=== PATIENT | female | born 2000 | race Caucasian/White ===

== ENCOUNTER 2023-11-03 13:02 | Outpatient (AMB) | payer OTHER, SELFPAY ==
--- NOTE | 2023-11-03 13:07 | MHC.PC.OV ---
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 She has a hx of ALL, anxiety, depression and GERD. She made a list of concerns today. She moved to [place] 2 years ago. She is currently living with her fiance. She injured her left pinky 8 weeks ago with a kitchen knife. She says that she has full range of motion but sometimes when she hits her pinky she is worried that she hit the bone with the knife. She states her tetanus was within the last 5 years. She has sensation to her pinky. She wants an x-ray. Psych: She has been having a lot of anxiety and depression recently. She states she is living with her fiance, parents are . She says that she has a history of this but recently the anxiety and depression has been a bit more overwhelming. She thinks that she is easily annoyed and does not like this. She feels that she is putting a lot of stress on her boyfriend. She is currently unemployed and she realizes that this is also contributing to her symptoms. In the past she thinks she tried Zoloft without improvement. Heme/onc: dx in 2006 and [facility] [place] [facility] She was successfully treated with chemo. She states she was discharged from heme/onc about 10 years ago. 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 PFSH Social History Housing: Apartment Patient Tobacco Use Status: Never used Tobacco e-Cigarette/Vaping Use: Never Used Second Hand Smoke Exposure: No service: No Current occupational status: unemployed Cognitive needs: No Hearing needs: No Vision needs: No Questionnaire PHQ-9 Over the last 2 weeks, how often have you been bothered by any of the following problems? 1. Little interest or pleasure in doing things: nearly every day 2. Feeling down, depressed, or hopeless: nearly every day 3. Trouble falling or staying asleep, or sleeping too much: more than half the days 4. Feeling tired or having little energy: nearly every day 5. Poor appetite or overeating: more than half the days 6. Feeling bad about yourself - or that you are a failure or have let yourself or your family down: nearly every day 7. Trouble concentrating on things, such as reading the newspaper or watching television: nearly every day 8. Moving or speaking so slowly that other people could have noticed. Or the opposite - being so fidgety or restless that you have been moving around a lot more than usual: not at all 9. Thoughts that you would be better off or of hurting yourself in some way: more than half the days Total score: 21 Source: Developed by Drs. Pedro Pablo Muniz, Kristina Lakhani, Mikael Hunter and colleagues, with an educational good from [employer]. Thrive Questionnaire Date Thrive assessed: 11/02/23 I am a: Patient What is your living situation today?: I have a steady place to live Within the past 12 months, did the food you bought not last and you didn't have the money to get more?: Sometimes True Within the past 12 months, did you worry whether your food would run out before you got money to buy more?: Sometimes True Do you have trouble paying for medicines?: I choose not to answer this question Do you have trouble getting transportation to medical appointments?: Yes Do you have trouble paying your heating and electricity bill?: No Do you have trouble taking care of your child, family member or friend?: No Do you have trouble with day-to-day activities such as bathing, preparing meals, shopping, managing finances, etc.?: No Are you currently unemployed and looking for a job?: Yes Are you interested in more education?: No Please select the resources that you would like help with: None Currently or been in a relationship where the following occur: No concerns reported THRIVE Score: 3 AUDIT C Alcohol Use Questionnaire (AUDIT-C) 1. How often do you have a drink containing alcohol?: 2-4 times a month 2. How many drinks containing alcohol do you have on a typical day when you are drinking?: 1 or 2 3. How often do you have six or more drinks on one occasion?: Never Total Score: 2 LUKAS-7 AMB Questionnaire LUKAS-7 Feeling nervous, anxious, or on edge: 3 = Nearly every day Not being able to stop or control worryin = Nearly every day Worrying too much about different things: 3 = Nearly every day Trouble relaxin = Nearly every day Being so restless that it is hard to sit still: 3 = Nearly every day Feeling afraid as if something awful might happen: 3 = Nearly every day Source: Developed by Drs. Pedro Pablo Muniz, Kristina Lakhani, Mikael Hunter and colleagues, with an educational good from [employer]. Physical exam (Primary Care) Vital Signs: Last Vital Signs Temp 98.4 F 11/03/23 13:10 Pulse 80 11/03/23 13:10 Resp 12 11/03/23 13:10 BP 94/64 11/03/23 13:10 Pulse Ox 100 11/03/23 13:10 Oxygen Delivery Method Room Air 11/03/23 13:10 BMI result Body Mass Index 27.4 Tobacco/Smoking Status: Tobacco use Status Tobacco use date assessed 11/03/23 11/03/23 13:16 Patient Tobacco Use Status Never used Tobacco 11/03/23 13:16 e-Cigarette/Vaping Use Never Used 11/03/23 13:16 PHQ-9: PHQ-9 Score PHQ-9: Total score 21 11/03/23 13:31 Thrive Assessment: Date of Thrive Assessment Date Thrive assessed 11/02/23 11/03/23 13:16 Currently or been in a relationship where the following occur: No concerns reported Const Orientation/consciousness: patient oriented x3 HENMT Ears: hearing grossly normal bilaterally Neck Thyroid: Thyroid normal Lymphatic: no lymphadenopathy noted Resp Auscultation: clear to auscultation bilaterally Cardio Rate: regular rate Rhythm: regular rhythm Heart sounds: S1 normal heart sound present and S2 normal heart sound present GI Inspection: Yes normal to inspection Palpation (GI): Soft to palpation and Other GI palpation findings present (nontender, no cva tenderness) Auscultation: normoactive bowel sounds Rectal Exam - Female: deferred Skin General skin exam: no rashes or lesions noted Neuro General: patient oriented x3, gait normal and no focal motor deficits Assessment and Plan Assessment & Plan (1) Major depression, recurrent: Code(s): F33.9 - Major depressive disorder, recurrent, unspecified Qualifiers: Active/Remission status: currently active Major depression episode severity: mild Qualified Code(s): F33.0 - Major depressive disorder, recurrent, mild Plan: We will start Lexapro. Discussed risks and benefits and adverse effects of this medication. Follow up in 4-6 weeks. Sooner if needed. Labs ordered. (2) Generalized anxiety disorder: Code(s): F41.1 - Generalized anxiety disorder Plan: As above. I have also referred her to behavioral health. (3) Injury of finger of left hand: Code(s): S69.92XA - Unspecified injury of left wrist, hand and finger(s), initial encounter Qualifiers: Encounter type: initial encounter Qualified Code(s): S69.92XA - Unspecified injury of left wrist, hand and finger(s), initial encounter Plan: X-ray ordered. Finger is neurovascularly intact. Full range of motion. Orders: Orders Comprehensive Bascom. Panel Fast 11/03/23 F33.9 - Major depressive disorder, recurrent, unspecified, F41.1 - Generalized anxiety disorder, Z13.220 - Encounter for screening for lipoid disorders TSH reflex Free T4 11/03/23 F33.9 - Major depressive disorder, recurrent, unspecified, F41.1 - Generalized anxiety disorder, Z13.220 - Encounter for screening for lipoid disorders Vitamin B12 and Folate 11/03/23 F33.9 - Major depressive disorder, recurrent, unspecified, F41.1 - Generalized anxiety disorder, Z13.220 - Encounter for screening for lipoid disorders Complete Blood Count Auto Diff 11/03/23 F33.9 - Major depressive disorder, recurrent, unspecified, F41.1 - Generalized anxiety disorder, Z13.220 - Encounter for screening for lipoid disorders Lipid Panel 11/03/23 F33.9 - Major depressive disorder, recurrent, unspecified, F41.1 - Generalized anxiety disorder, Z13.220 - Encounter for screening for lipoid disorders XR finger LT min 2V 11/03/23 S69.92XA - Unspecified injury of left wrist, hand and finger(s), initial encounter Referrals Behavioral Health Referral F33.9 - Major depressive disorder, recurrent, unspecified, F41.1 - Generalized anxiety disorder 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 10 mg PO DAILY 90 tabs 0RF Coding Level of Care Code New Pt Level 3 (22025) Complex EM visit Add On G2211 Diagnoses Mild episode of recurrent major depressive disorder F33.0 Active/Remission status: currently active Major depression episode severity: mild Generalized anxiety disorder F41.1 Injury of finger of left hand, initial encounter S69.92XA Encounter type: initial encounter
[2023-11-03 13:10] VITALS: BP 94/64; PULSE 80; RESP 12; TEMP 36.9; O2SAT 100; BMI 27.4
== END 2023-11-03 13:59 | disposition home or self-care (01) ==
PROVIDERS: PCP Physician Assistant; Visit Provider Physician Assistant
DX: F33.0 Major depressive disorder, recurrent, mild (principal); F41.1 Generalized anxiety disorder; S69.92XA Unspecified injury of left wrist, hand and finger(s), initial encounter

== ENCOUNTER → 2023-11-03 13:02 | Outpatient (BNVA) | payer OTHER, SELFPAY | PROVIDERS: Visit Provider Physician Assistant | DX: F33.0 Major depressive disorder, recurrent, mild (principal); F41.1 Generalized anxiety disorder; S69.92XA Unspecified injury of left wrist, hand and finger(s), initial encounter | CPT/HCPCS: 99202 ==

== ENCOUNTER 2023-12-16 10:47 | Outpatient (AMB) | payer OTHER, SELFPAY ==
--- NOTE | 2023-12-16 10:53 | MHC.PC.OV ---
Vital Signs 12/16/23 10:54 Height 5 ft 2.6 in Weight 152 lb 6 oz BMI 27.3 BP 102/62 Blood Pressure Location Rt brachial Position Sitting Pulse 72 Pulse Source Pulse Oximeter Pulse Oximetry (%) 99 Oxygen Delivery Method Room Air Intake Visit Reasons: depression medication Intake Note: Follow up anxiety medication Allergies ceftriaxone [From Rocephin] Allergy (Unknown, Verified 12/16/23 10:54) Hives Medication List - Last Reconciled 12/16/23 by Barb Cartagena PA-C escitalopram oxalate (Lexapro) 10 mg PO DAILY magnesium 250 mg PO DAILY Tobacco use date assessed: 11/03/23 Dental Screening Dental Screen Date: 11/03/23 HPI depression medication HPI Details Patient is a 23-year-old female who presents today for a follow up. She has a hx of ALL, anxiety, depression and GERD. -forgot to do labs. Psych: She is doing great with lexapro. She states her anxiety and depression is significantly improved. No SI/HI. She does struggle with concentration and wants testing for ADD. Heme/onc: dx in 2006 and [facility] [place] [facility] She was successfully treated with chemo. She states she was discharged from heme/onc about 10 years ago. 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 Social History Housing: Apartment Patient Tobacco Use Status: Never used Tobacco e-Cigarette/Vaping Use: Never Used Second Hand Smoke Exposure: No service: No Current occupational status: unemployed Cognitive needs: No Hearing needs: No Vision needs: No Questionnaire Thrive Questionnaire Date Thrive assessed: 11/02/23 I am a: Patient What is your living situation today?: I have a steady place to live Within the past 12 months, did the food you bought not last and you didn't have the money to get more?: Sometimes True Within the past 12 months, did you worry whether your food would run out before you got money to buy more?: Sometimes True Do you have trouble paying for medicines?: I choose not to answer this question Do you have trouble getting transportation to medical appointments?: Yes Do you have trouble paying your heating and electricity bill?: No Do you have trouble taking care of your child, family member or friend?: No Do you have trouble with day-to-day activities such as bathing, preparing meals, shopping, managing finances, etc.?: No Are you currently unemployed and looking for a job?: Yes Are you interested in more education?: No Please select the resources that you would like help with: None Currently or been in a relationship where the following occur: No concerns reported THRIVE Score: 3 LUKAS-7 AMB Questionnaire LUKAS-7 Becoming easily annoyed or irritable: 0 = Not at all Source: Developed by Drs. Pedro Pablo Muniz, Kristina Lakhani, Mikael Hunter and colleagues, with an educational good from [employer]. Physical exam (Primary Care) Vital Signs: Last Vital Signs Pulse 72 12/16/23 10:54 BP 102/62 12/16/23 10:54 Pulse Ox 99 12/16/23 10:54 Oxygen Delivery Method Room Air 12/16/23 10:54 BMI result Body Mass Index 27.3 Tobacco/Smoking Status: Tobacco use Status Tobacco use date assessed 11/03/23 12/16/23 10:58 Patient Tobacco Use Status Never used Tobacco 12/16/23 10:58 e-Cigarette/Vaping Use Never Used 12/16/23 10:58 Thrive Assessment: Date of Thrive Assessment Date Thrive assessed 11/02/23 12/16/23 10:58 Currently or been in a relationship where the following occur: No concerns reported Const Orientation/consciousness: patient oriented x3 HENMT Ears: hearing grossly normal bilaterally Neck Thyroid: Thyroid normal Lymphatic: no lymphadenopathy noted Resp Auscultation: clear to auscultation bilaterally Cardio Rate: regular rate Rhythm: regular rhythm Heart sounds: S1 normal heart sound present and S2 normal heart sound present GI Inspection: Yes normal to inspection Palpation (GI): Soft to palpation and Other GI palpation findings present (nontender, no cva tenderness) Auscultation: normoactive bowel sounds Rectal Exam - Female: deferred Skin General skin exam: no rashes or lesions noted Neuro General: patient oriented x3, gait normal and no focal motor deficits Coding Level of Care Code Est Pt Level 3 (14377) Complex EM visit Add On G2211 Diagnoses Mild episode of recurrent major depressive disorder F33.0 Active/Remission status: currently active Major depression episode severity: mild Generalized anxiety disorder F41.1 Concentration deficit R41.840 Assessment & Plan Assessment & Plan (1) Major depression, recurrent: Code(s): F33.9 - Major depressive disorder, recurrent, unspecified Category: Medical Qualifiers: Active/Remission status: currently active Major depression episode severity: mild Qualified Code(s): F33.0 - Major depressive disorder, recurrent, mild Plan: continue current treatment plan. advised to seek emergent medical treatment if she develops SI/HI. Follow up with . She is going to look into ADD center for work up. (2) Generalized anxiety disorder: Code(s): F41.1 - Generalized anxiety disorder Category: Medical Plan: continue current plan (3) Concentration deficit: Code(s): R41.840 - Attention and concentration deficit Category: Medical Plan: referral to add clinic Orders: Referrals Neuropsychiatry Referral F33.0 - Major depressive disorder, recurrent, mild, F41.1 - Generalized anxiety disorder, R41.840 - Attention and concentration deficit Medications: Changed From escitalopram oxalate (Lexapro) take 1/2 tab po x 1 week then take 1 tab po daily. 10 mg PO DAILY 90 tabs 0RF To escitalopram oxalate (Lexapro) 10 mg PO DAILY 90 tabs 3RF
[2023-12-16 10:54] VITALS: BP 102/62; PULSE 72; O2SAT 99; BMI 27.3
== END 2023-12-16 11:22 | disposition home or self-care (01) ==
LOC: HO.HMCFM 10:48
PROVIDERS: PCP Physician Assistant; Visit Provider Physician Assistant
DX: F33.0 Major depressive disorder, recurrent, mild (principal); F41.1 Generalized anxiety disorder; R41.840 Attention and concentration deficit

== ENCOUNTER → 2023-12-16 10:47 | Outpatient (BNVA) | payer OTHER, SELFPAY | PROVIDERS: PCP Physician Assistant; Visit Provider Physician Assistant | DX: F33.9 Major depressive disorder, recurrent, unspecified (principal); F41.1 Generalized anxiety disorder; S69.92XA Unspecified injury of left wrist, hand and finger(s), initial encounter; R41.840 Attention and concentration deficit | CPT/HCPCS: 99212 ==

== ENCOUNTER 2023-12-24 09:23 | Outpatient (AMB) | payer OTHER, SELFPAY ==
--- NOTE | 2023-12-24 09:27 | A.OFFVIS_ITS ---
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 She has a history of having leukemia when she was 6 or 7 years old and she had chemotherapy she does have questions is whether not it affected her fertility she remembers her parents telling her that they thought voice would be more affected than girls. Currently she is sexually active with her fiance and they use condoms but she would like to do something more effective for now for sure she is not sure about what she wants to do long- term as regards fertility . She has been thinking about it and thinks she would like Depo-Provera and we discussed every method and all of their side effects today. She started on an antidepressant antianxiety medication last month and she has already noticed that it has negatively affected her libido. She will be getting all of her blood work for her primary care provider and she is open to adding STI blood work that as well She had a history of an abnormal Pap smear when she was 19 years old but then she did not have insurance and was no longer student so she could not return for repeat Pap smear. she has had occasional yeast infections that she self-treated with left over Diflucan. [facility] Social History Housing: Apartment Patient Tobacco Use Status: Never used Tobacco e-Cigarette/Vaping Use: Never Used Second Hand Smoke Exposure: No Patient : No service: No Current occupational status: unemployed Cognitive needs: No Hearing needs: No Vision needs: No Female Reproductive History Menstrual Age of Menarche: 10 Date of last menstrual period: 12/07/23 control method: other Total pregnancies: 0 History of abnormal pap smear: Yes (2020) History of STI: No Physical Exam Vital Signs: Last Vital Signs BP 102/62 12/24/23 09:31 BMI result Body Mass Index 27.6 Const General: healthy appearing, comfortable, no acute distress, well developed and alert Nutritional Appearance: average body habitus Orientation/consciousness: patient oriented x3 Limitations: no limitations HEENT Head: Yes normocephalic Neck Neck: Yes normal visual inspection Chest Chest palpation & inspection: normal inspection of the chest Breast/axilla inspection: normal inspection of the breasts and normal inspection of the axillae Breast/axilla palpation: normal palpation of the breasts and normal palpation of the axillae Resp Effort & Inspection: normal respiratory effort GI Inspection: Yes normal to inspection, No Abdominal wall edema and No distended Palpation (GI): Soft to palpation and nontender Other: External exam within normal limits vagina pink moist cervix nulliparous pink moist discharge consistent with luteal phase cervix long close thick mobile nontender uterus small anteverted mobile nontender adnexa not enlarged good tone with Kegel. General: Yes bladder normal to palpation External Female Exam: normal external appearance and normal appearance of the urethra Speculum Exam - Vagina: normal appearance of the vagina, normal palpation and normal vaginal discharge Speculum Exam - Cervix: normal appearance of the cervix, normal palpation and nontender Bimanual exam- vagina & uterus: normal bimanual exam, normal palpation, uterine size normal, bladder normal to palpation, consistency normal, normal palpation, uterine mobility normal, uterine shape normal, No Cervical tenderness present, non-tender and no cervical motion tenderness Bimanual Exam- Adnexa, other: normal adnexae, no masses, normal and No adnexal tenderness Neuro General: patient oriented x3 Assessment & Plan Assessment & Plan (1) Leukemia in remission: Code(s): C95.91 - Leukemia, unspecified, in remission (2) Women's annual routine gynecological examination: Code(s): Z01.419 - Encounter for gynecological examination (general) (routine) without abnormal findings (3) Encounter for screening examination for sexually transmitted disease: Code(s): Z11.3 - Encounter for screening for infections with a predominantly sexual mode of transmission Category: Medical (4) Hx of abnormal cervical Pap smear: Code(s): Z87.42 - Personal history of other diseases of the female genital tract Category: Medical (5) control counseling: Code(s): Z30.09 - Encounter for other general counseling and advice on contraception Category: Medical (6) At risk for fertility problems: Code(s): Z91.89 - Other specified personal risk factors, not elsewhere classified Category: Medical Plan -----Discussed in this visit the following: healthy balanced diet, regular and consistent exercise, getting recommended health screens, doing the best she can for her particular health concerns, kegel exercises, pap smear screening and followup recommendations, mammography screening and SBE, normal changes in cycles in her life stage--- . Discussed all of the control methods and all of their side effects.-I reviewed with the patient, all of the currently common used methods of con trol that are available. We reviewed how they work in the body, how they are taken, common side effects, uncommon side effects, precautions, and contraindications. -Discussed also factors that influence their effectiveness and use, and womens satisfaction with the method. -Discussed how each are used, and drawbacks of each method as well. -Methods covered included: condoms, control pills, control patches, control rings, Depo-Provera, Nexplanon, Mirena and Kyleena IUDs, and ParaGard IUDs. All of the above methods were covered in great detail including their side effect profiles and common experiences that women have and ways to mitigate against the negative experiences including attention to diet and exercise patient's with bleeding challenges that may occur her and efforts to time the initiation of the method to this start of the menstrual period. She is most interested in Depo-Provera I am prescribing it for her discussed possible slow return of menses and fertility afterwards. Also discussed her concern about whether not her fertility was affected by her chemotherapy she might need to have a conversation with the parents and back on records but I recommend that if she were seeking after discontinuing Depo-Provera that once menses return, she allow for six-month period while she keeps track of everything very carefully and seek reproductive assistance if necessary after that so she would not waste time. Reviewed HPV in the current guidelines for Pap smear screening we will assess once the Pap smears back whether not she needs any follow-up. Discussed the possibility that her immune system has clear the HPV or whenever might have caused the abnormal Pap smear in the 1st case. Patient instructed to grain picker the Depo-Provera and then when her menses come to call the office for a visit with the RN to get the injection within the 1st few heavy days of her period. She tries to eat healthy she tries to exercise these days more in her apartment. RTC 1 year. Orders: Orders Bacterial Vaginosis Panel Today [id number] - Encounter for gynecological examination (general) (routine) without abnormal findings Pap Smear Today [id number] - Encounter for gynecological examination (general) (routine) without abnormal findings Hepatitis C Antibody Today Z11.3 - Encounter for screening for infections with a predominantly sexual mode of transmission, Z30.09 - Encounter for other general counseling and advice on contraception, Z87.42 - Personal history of other diseases of the female genital tract, Z91.89 - Other specified personal risk factors, not elsewhere classified CT NG by PCR Today Z419 - Encounter for gynecological examination (general) (routine) without abnormal findings Hepatitis B Surface Antigen Today Z11.3 - Encounter for screening for infections with a predominantly sexual mode of transmission, Z30.09 - Encounter for other general counseling and advice on contraception, Z87.42 - Personal history of other diseases of the female genital tract, Z91.89 - Other specified personal risk factors, not elsewhere classified HIV Ab/Ag Today Z11.3 - Encounter for screening for infections with a predominantly sexual mode of transmission, Z30.09 - Encounter for other general counseling and advice on contraception, Z87.42 - Personal history of other diseases of the female genital tract, Z91.89 - Other specified personal risk factors, not elsewhere classified Syphilis Screen Today Z11.3 - Encounter for screening for infections with a predominantly sexual mode of transmission, Z30.09 - Encounter for other general counseling and advice on contraception, Z87.42 - Personal history of other diseases of the female genital tract, Z91.89 - Other specified personal risk factors, not elsewhere classified Medications: New medroxyprogesterone (Depo-Provera) 150 mg IM Q12W 1 mL 5RF Coding Level of Care Code New Pt Prev Care 18-39yr([id number] Diagnoses Leukemia in remission C95.91 Women's annual routine gynecological examination Z01.419 Encounter for screening examination for sexually transmitted disease Z11.3 Hx of abnormal cervical Pap smear Z87.42 control counseling Z30. At risk for fertility problems Z91.89
[2023-12-24 09:31] VITALS: BP 102/62; BMI 27.6
== END 2023-12-24 10:28 | disposition home or self-care (01) ==
PROVIDERS: PCP Physician Assistant; Visit Provider Advanced Practice Midwife
DX: Z01.419 Encounter for gynecological examination (general) (routine) without abnormal findings (principal); Z87.42 Personal history of other diseases of the female genital tract; Z91.89 Other specified personal risk factors, not elsewhere classified
CPT/HCPCS: 99385

== ENCOUNTER 2023-12-24 09:23 | Outpatient (REF) | payer OTHER, SELFPAY ==
[2023-12-25 05:36] LABS: CT PCR NOT DETECTED (Not Detect.); NG PCR NOT DETECTED (Not Detect.)
[2023-12-25 08:13] LABS: Bacterial Vaginosis PCR NEGATIVE (Negative); Candida Group PCR NOT DETECTED (Not Detect); Candida glab krusei PCR NOT DETECTED (Not Detect); Trichomonas vaginalis PCR NOT DETECTED (Not Detect)
[2023-12-27 10:17] LABS: HPV 16,18/45 See PAP report
== END 2023-12-24 09:24 | disposition home or self-care (01) ==
LOC: HO.LNP 09:23
PROVIDERS: PCP Physician Assistant; Visit Provider Advanced Practice Midwife
DX: Z01.419 Encounter for gynecological examination (general) (routine) without abnormal findings (principal); Z11.3 Encounter for screening for infections with a predominantly sexual mode of transmission; Z87.42 Personal history of other diseases of the female genital tract; Z91.89 Other specified personal risk factors, not elsewhere classified
CPT/HCPCS: 0352U; 87491; 87591; 87624; 88175; 99385

== ENCOUNTER 2024-01-04 09:55 | Outpatient (REF) | payer OTHER, SELFPAY ==
[2024-01-04 13:28] LABS: MANUAL DIFF FLAG NO
[2024-01-04 13:50] LABS: Basophils Percent Auto 0.5 % (0-2); Eosinophils Absolute Auto 0.1 X10*3/uL (0.0-0.4); Eosinophils Percent Auto 1.6 % (0-4); Hematocrit 40.1 % (37.0-47.0); Hemoglobin 13.9 g/dl (12.0-16.0); Imm Gran Abs Auto 0.01 X10*3/uL (0.00-0.03); Imm Gran Pct Auto 0.2 % (0.0-0.4); Lymphocytes Absolute Auto 1.6 X10*3/uL (1.2-4.9); Lymphocytes Percent Auto 37.9 % (20-40); Mean Corpuscular HGB Conc 34.7 g/dl (31.0-35.0); Mean Corpuscular Volume 89.3 fL (80.0-98.0); Mean Platelet Volume 11.1 fL (9.4-12.3); Monocytes Absolute Auto 0.4 X10*3/uL (0.1-1.2); Neutrophils Absolute Auto 2.2 x10*3/uL (2.0-8.3); Neutrophils Percent Auto 50.8 % (45-73); Platelet Count 266 X10*3/uL (160-400); Red Blood Count 4.49 X10*6/uL (4.20-5.50); Red Cell Distribution Width 11.6 % (11.0-16.0); White Blood Count 4.3 X10*3/uL (4.8-10.8)
[2024-01-04 14:28] LABS: Alanine Aminotransferase 15 U/L (0-31); Albumin Level 4.3 g/dL (3.5-5.0); Alkaline Phosphatase 55 U/L (39-117); Anion Gap 8 (12-20); Aspartate Amino Transferase 20 U/L (5-31); Bilirubin Total 0.6 mg/dL (0.0-1.0); Blood Urea Nitrogen 9 mg/dL (9-16); Calcium 9.3 mg/dL (8.4-10.2); Carbon Dioxide 27 mmol/L (22-29); Chloride 108 mmol/L (96-108); Cholesterol 180 mg/dL (<200); Estimated Glomerular Filt Rate > 60; Glucose Fasting 90 mg/dL (60-99); HDL Cholesterol 56 mg/dL (>40); LDL Cholesterol Calculated 115 mg/dL (<100); Potassium 3.8 mmol/L (3.3-5.1); Sodium 139 mmol/L (135-145); Total Protein 7.1 g/dL (6.5-8.0); Triglycerides 49 mg/dL (<150)
[2024-01-04 14:45] LABS: Folate 9.8 ng/mL (> or = 4.0); TSH reflex Free T4 0.99 uIU/mL (0.32-4.0); Vitamin B12 264 pg/mL (200-900)
[2024-01-05 03:44] LABS: Syphilis Screen Nonreactive (Nonreactive)
[2024-01-05 04:12] LABS: HBsAGNum1 0.35 S/CO (0.00-0.99); HIV AB/AG Nonreactive (Nonreactive); HIV Num 1 0.06 S/CO (0.00-0.99); Hepatitis B Surface Antigen Negative (Negative); ~HepC Num1 0.05 S/CO (0.00-0.79); ~Hepatitis C Antibody Nonreactive (Nonreactive)
== END 2024-01-04 09:56 | disposition home or self-care (01) ==
LOC: HO.HMGCX 09:55
PROVIDERS: Absent Provider Advanced Practice Midwife; PCP Physician Assistant; Visit Provider Physician Assistant
DX: F41.1 Generalized anxiety disorder (principal); F33.9 Major depressive disorder, recurrent, unspecified; Z13.220 Encounter for screening for lipoid disorders; Z11.3 Encounter for screening for infections with a predominantly sexual mode of transmission; Z87.42 Personal history of other diseases of the female genital tract; Z30.09 Encounter for other general counseling and advice on contraception; Z91.89 Other specified personal risk factors, not elsewhere classified; S69.92XA Unspecified injury of left wrist, hand and finger(s), initial encounter
CPT/HCPCS: 36415; 73140; 80053; 80061; 82607; 82746; 84443; 85025; 86780; 86803; 87340; 87389

== ENCOUNTER → 2024-01-05 12:56 | Outpatient (BNVA) | payer OTHER, SELFPAY | PROVIDERS: PCP Physician Assistant; Visit Provider Advanced Practice Midwife ==

== ENCOUNTER → 2024-01-05 13:27 | Outpatient (BNV) | payer OTHER, SELFPAY ==
[2024-01-05 13:27] VITALS: BMI 27.7
--- NOTE | 2024-01-05 13:27 | AM.OFFVISNUR ---
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 Pt denies UPI in the last 2 weeks. No c/o today. UPT today is negative. Pt tolerated injection well. Advised pt to use a BUM of control x7 days. She was advised to schedule her next injection in 12 weeks. Pt verbalizes understanding and agrees with plan. No further questions. Office Procedures Depo Questionnaire If YES to any of the following questions, please consult a provider. Date of last menstrual period: 01/05/24 Date of last gynecology exam: 12/24/23 Menstrual pattern since last injection has been: Not Applicable test in office results: Negative Irregular bleeding?: No Breast lumps or other breast changes?: No Changes in weight or appetite?: No Depression or changes in mood?: No Abnormal hair growth or loss?: No Skin problems (rash, acne, discoloration)?: No Pain at the injection site?: No Headaches?: No Nervousness?: No Abdominal pain or cramping?: No Dizziness or nausea?: No Fatigue or weakness?: No Decrease in sexual drive?: No Chest pain or shortness of breath?: No Swelling in arms or legs?: No Form completed by?: 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 Depo-Provera 150 mg/mL intramuscular syringe Performing Provider: Sintia Mcgill CNM [place] [facility] [place] Administered by: Sosa Valero on 01/05/24 13:41 Dose Route Admin Location Dispensed Lot Number Expiration Date [facility] [employer] 150 mg IM right deltoid 1 mL [id number] 01/14/26 [id number] [facility] Results AMB Test Urine AMB Test Urine Negative Last Edit by Sosa Valero on 01/05/24 13:40 Assessment & Plan Assessment & Plan (1) Encounter for management and injection of depo-Provera: Code(s): Z30.42 - Encounter for surveillance of injectable contraceptive Category: Medical Orders: Orders AMB Medroxyprogesterone Injection Patient Supplied Today Z30.42 - Encounter for surveillance of injectable contraceptive Medications: New Depo-Provera (medroxyprogesterone) 150 mg IM ONCE 1 mL 0RF NS Z30.42 - Encounter for surveillance of injectable contraceptive Patient Instructions: Pt will schedule next Depo injection in 12 weeks.
== END ==
PROVIDERS: PCP Physician Assistant
DX: Z30.42 Encounter for surveillance of injectable contraceptive (principal)
CPT/HCPCS: 99211; J1050

== ENCOUNTER 2024-06-07 10:26 | Outpatient (AMB) | payer OTHER, SELFPAY ==
--- NOTE | 2024-06-07 10:37 | A.OFFPC_ITS ---
Vital Signs 06/07/24 10:39 Height 5 ft 2.6 in Weight 174 lb BMI 31.2 BP 96/68 Blood Pressure Location Lt brachial Position Sitting Respiration 12 Pulse 76 Pulse Source Pulse Oximeter Pulse Oximetry (%) 96 Oxygen Delivery Method Room Air Intake Visit Reasons: physical Intake Note: Physical. Having constipation since starting Lexapro. Tried taking control but did not like the side effects. Cardiovascular Technologist Required: No Allergies ceftriaxone [From Rocephin] Allergy (Unknown, Verified 06/07/24 10:37) Hives Medication List - Last Reconciled 06/07/24 by Barb Cartagena PA-C bupropion HCl XL (Wellbutrin XL) 150 mg PO QAM escitalopram oxalate (Lexapro) 10 mg PO DAILY L.acidophil-L.plantar-Bifido 7 25 billion cell (up4 Probiotics Adult 50 Plus) caps PO magnesium 250 mg PO DAILY polyethylene glycol 3350 (Miralax) 17 grams PO DAILY Tobacco use date assessed: 06/07/24 Dental Screening Dental Screen Date: 11/03/23 HPI physical HPI Details Patient is a 24-year-old female who presents today for a physical exam and she does have some concerns. She has a hx of ALL, anxiety, depression and GERD. Psych: She states her anxiety was well-controlled with Lexapro but her depression is still present. She is also struggling with the side effects of Lexapro. Her side effects from the Lexapro were not as significant lower doses. She states that since the fall she has been having frequent headaches and constipation. She is still struggling with concentration and energy level. Denies any SI/HI. -she tried sertraline and gabapentin. Heme/onc: dx in 2006 and followed [facility] [place] [facility]. She was successfully treated with chemo. She states she was discharged from heme/onc about 10 years ago. Neuro: She started getting frequent headaches starting around the time she started lexapro. She wonders if it is related. She has not had an eye exam since 2017. She says that she is well hydrated. She has not tried any new supplements. She says that she will wake up with a headache at times or go to sleep with the headache and wake up with the same headache. She states sometimes the headache does not start until later in the day. It is almost every day and it is mainly on the right side but it can be on either side. No dizziness or vision changes. No nausea or vomiting. GI: She has been dealing with constipation for the last 6 months or so. She states that she is using Colace but that does not appear to be effective. She has been taking probiotics and has been trying to introduce yeast also into her gut. She states that she will use prune juice intermittently but it feels like her body gets dependent on this and then she needs it. No blood in the stool. No weight loss. 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: [employer] Medical History (Updated 06/07/24 @ 11:09 by Barb Cartagena PA-C) Encounter for management and injection of depo-Provera Social History (Updated 06/07/24 @ 10:44 by Rosana Gomez CMA) Housing: Apartment Alcohol intake: current Patient Tobacco Use Status: Never used Tobacco e-Cigarette/Vaping Use: Never Used Second Hand Smoke Exposure: No Substance Use Type: Marijuana service: No Current occupational status: unemployed Cognitive needs: No Hearing needs: No Vision needs: No Female Reproductive History Menstrual Age of Menarche: 10 Questionnaire PHQ-9 Over the last 2 weeks, how often have you been bothered by any of the following problems? 1. Little interest or pleasure in doing things: nearly every day 2. Feeling down, depressed, or hopeless: nearly every day 3. Trouble falling or staying asleep, or sleeping too much: several days 4. Feeling tired or having little energy: nearly every day 5. Poor appetite or overeating: several days 6. Feeling bad about yourself - or that you are a failure or have let yourself or your family down: nearly every day 7. Trouble concentrating on things, such as reading the newspaper or watching television: more than half the days 8. Moving or speaking so slowly that other people could have noticed. Or the opposite - being so fidgety or restless that you have been moving around a lot more than usual: several days 9. Thoughts that you would be better off or of hurting yourself in some way: several days Total score: 18 Depression Screening Interpretation: Positive Depression Screening Done: Yes 35595 - PHQ-9 Billing: Yes Source: Developed by Drs. Pedro Pablo Muinz, Kristina Lakhani, Mikael Hunter and colleagues, with an educational good from [employer]. Thrive Questionnaire Date Thrive assessed: 06/07/24 I am a: Patient What is your living situation today?: I have a steady place to live Within the past 12 months, did the food you bought not last and you didn't have the money to get more?: Sometimes True Within the past 12 months, did you worry whether your food would run out before you got money to buy more?: Sometimes True Do you have trouble paying for medicines?: No Do you have trouble getting transportation to medical appointments?: No Do you have trouble paying your heating and electricity bill?: No Do you have trouble taking care of your child, family member or friend?: No Do you have trouble with day-to-day activities such as bathing, preparing meals, shopping, managing finances, etc.?: I choose not to answer this question Are you currently unemployed and looking for a job?: Yes Are you interested in more education?: Yes Please select the resources that you would like help with: Daily support and Job search/training Currently or been in a relationship where the following occur: No concerns reported THRIVE Score: 2 AUDIT C Alcohol Use Questionnaire (AUDIT-C) 1. How often do you have a drink containing alcohol?: 2-4 times a month 2. How many drinks containing alcohol do you have on a typical day when you are drinking?: 1 or 2 3. How often do you have six or more drinks on one occasion?: Less than monthly Total Score: 3 LUKAS-7 AMB Questionnaire LUKAS-7 Date LUKAS - 7 assessed: 06/07/24 Feeling nervous, anxious, or on edge: 1 = Several days Not being able to stop or control worryin = Several days Worrying too much about different things: 2 = More than half the days Trouble relaxin = Several days Being so restless that it is hard to sit still: 2 = More than half the days Becoming easily annoyed or irritable: 2 = More than half the days Feeling afraid as if something awful might happen: 0 = Not at all Total LUKAS-7 score (0-4 normal; 5-9 mild; 10-14 moderate; 15-21 severe): 9 Source: Developed by Drs. Pedro Pablo Muniz, Kristina Lakhani, Mikael Hunter and colleagues, with an educational good from [employer]. LUKAS-7 Assessment Billing LUKAS-7 Assessment Tool: LUKAS-7 Assessment 16843 Physical exam (Primary Care) Vital Signs: Last Vital Signs Pulse 76 06/07/24 10:39 Resp 12 06/07/24 10:39 BP 96/68 06/07/24 10:39 Pulse Ox 96 06/07/24 10:39 Oxygen Delivery Method Room Air 06/07/24 10:39 BMI result Body Mass Index 31.2 Tobacco/Smoking Status: Tobacco use Status Tobacco use date assessed 06/07/24 06/07/24 10:43 Patient Tobacco Use Status Never used Tobacco 06/07/24 10:44 e-Cigarette/Vaping Use Never Used 06/07/24 10:44 PHQ-9: PHQ-9 Score PHQ-9: Total score 18 06/07/24 11:05 Depression Screening Interpretation: Positive Thrive Assessment: Date of Thrive Assessment Date Thrive assessed 06/07/24 06/07/24 10:44 Currently or been in a relationship where the following occur: No concerns reported Const Orientation/consciousness: patient oriented x3 HENMT Ears: hearing grossly normal bilaterally and TM's normal bilaterally General nose exam: No nasal polyps present Face and sinus: Yes sinuses nontender Mouth: Normal oral and palatal mucosa present Eyes Pupils: Equal, round and reactive pupils present EOM: EOMs intact bilaterally Neck Neck: Yes full ROM and Yes no lymphadenopathy Thyroid: Thyroid normal Chest Chest palpation & inspection: normal inspection of the chest Resp Auscultation: clear to auscultation bilaterally Cardio Rate: regular rate Rhythm: regular rhythm Heart sounds: S1 normal heart sound present and S2 normal heart sound present Peripheral pulses: Peripheral pulses 2+ throughout GI Other: Soft, nontender Auscultation: normal bowel sounds Rectal Exam - Female: deferred General: Yes no CVA tenderness Back/Spine/Pelvis Other: Nontender Back: no CVA tenderness Skin General skin exam: no rashes or lesions noted Neuro General: patient oriented x3, gait normal, CN's II-XI intact bilaterally and deep tendon reflexes 2+ bilaterally Cranial nerves: Yes Equal, round and reactive pupils present Motor exam (neuro): 5/5 motor strength present throughout Sensory Exam: double simultaneous stimulation for sensation normal Coordination: [id number] test normal and Romberg test negative Extrem General: Yes normal to inspection and Yes full ROM Psych Affect: normal affect Attitude: cooperative Thought process: Normal thought process present Thought content: Normal thought content present Insight: Good insight present (Psych) Judgement: Good judgement present (Psych) Coding Level of Care Code Est Pt Level 3 (61428) Est Pt Prev Care 18-39y(12901) Diagnoses Routine general medical examination at a health care facility Z00.00 Mild episode of recurrent major depressive disorder F33.0 Active/Remission status: currently active Major depression episode severity: mild Generalized anxiety disorder F41.1 New daily persistent headache G44.52 Constipation K59.00 Additional Codes LUKAS-7 Assessment Billing - LUKAS-7 Assessment Tool: LUKAS-7 Assessment 43463 ([id number]) PHQ-9 - 48853 - PHQ-9 Billing: Yes ([id number]) Assessment & Plan Assessment & Plan (1) Routine general medical examination at a health care facility: Code(s): Z00.00 - Encounter for general adult medical examination without abnormal findings Plan: Health maintenance reviewed. Labs ordered. We will follow up pending test results (2) Major depression, recurrent: Code(s): F33.9 - Major depressive disorder, recurrent, unspecified Category: Medical Qualifiers: Active/Remission status: currently active Major depression episode severity: mild Qualified Code(s): F33.0 - Major depressive disorder, recurrent, mild Plan: Reduce Lexapro to 10 mg. We will start Wellbutrin. Discussed risks and benefits and adverse effects of this medication. Advised short term follow up in a few weeks to be reassessed. Sooner if anything worsens or changes. Advised to seek emergent medical treatment should she develop any SI/HI. (3) Generalized anxiety disorder: Code(s): F41.1 - Generalized anxiety disorder Category: Medical Plan: As above (4) New daily persistent headache: Code(s): G44.52 - New daily persistent headache (NDPH) Category: Medical Plan: MRI ordered. Appears grossly neurologically intact today. Advised her to get an eye exam. We will work on cutting back on the Lexapro to see if this helps with any symptoms. (5) Constipation: Code(s): K59.00 - Constipation, unspecified Category: Medical Plan: As above. Labs. We will try MiraLax. Referral to GI. States that she has been eating healthy and gets enough fiber in her diet and drinks enough water. We also discussed the benefits of exercise. Orders: Orders Complete Blood Count Auto Diff Today F33.0 - Major depressive disorder, recurrent, mild, F41.1 - Generalized anxiety disorder, G44.52 - New daily persistent headache (NDPH), K59.00 - Constipation, unspecified Vitamin B12 and Folate Today F33.0 - Major depressive disorder, recurrent, mild, F41.1 - Generalized anxiety disorder, G44.52 - New daily persistent headache (NDPH), K59.00 - Constipation, unspecified Magnesium Today F33.0 - Major depressive disorder, recurrent, mild, F41.1 - Generalized anxiety disorder, G44.52 - New daily persistent headache (NDPH), K 59.00 - Constipation, unspecified TSH reflex Free T4 Today F33.0 - Major depressive disorder, recurrent, mild, F41.1 - Generalized anxiety disorder, G44.52 - New daily persistent headache (NDPH), K59.00 - Constipation, unspecified MR head/brain wo con Today F33.0 - Major depressive disorder, recurrent, mild, F41.1 - Generalized anxiety disorder, G44.52 - New daily persistent headache (NDPH), K59.00 - Constipation, unspecified Comprehensive Shepherd. Panel Fast Today F33.0 - Major depressive disorder, recurrent, mild, F41.1 - Generalized anxiety disorder, G44.52 - New daily persistent headache (NDPH), K59.00 - Constipation, unspecified Vitamin D 25-OH Total Today F33.0 - Major depressive disorder, recurrent, mild, F41.1 - Generalized anxiety disorder, G44.52 - New daily persistent headache (NDPH), K59.00 - Constipation, unspecified Referrals Gastroenterology Referral K59.00 - Constipation, unspecified Medications: New bupropion HCl XL (Wellbutrin XL) 150 mg PO QAM 90 tabs 0RF escitalopram oxalate (Lexapro) 10 mg PO DAILY 90 tabs 0RF polyethylene glycol 3350 (Miralax) 17 grams PO DAILY 100 ea 2RF Discontinued escitalopram oxalate (Lexapro) Discontinued Reason: Doctor's Order 20 mg PO DAILY 90 tabs 3RF
[2024-06-07 10:39] VITALS: BP 96/68; PULSE 76; RESP 12; O2SAT 96; BMI 31.2
--- OUTSIDE RECORDS SUMMARY | 2024-06-07 12:18 | XMS_ITS | Clinical Summary ---
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
--- OUTSIDE RECORDS SUMMARY | 2024-06-07 12:18 | XMS_ITS | Encounter Summary ---
Author Organization [facility] Address [address] [place] [address] Care Team Providers Care Rhia Name Role Phone Unavailable Primary Care Provider Unavailabl e Prior Encounters Date Type Department Care Team Description 03/06/2019 Converted 13x Documents [facility] [address] [place] [id number] <No scans attached> 03/06/2019 Converted 13x Documents [facility] [address] [place] [address] <No scans attached> 03/06/2019 Converted CPS Chart Documents [facility] [address] [place] [id number] <No scans attached> 03/06/2019 Converted CPS Chart Documents [facility] [address] [place] [id number] <No scans attached> Plan of Treatment Not on file Procedures Procedure Name Priority Date/Time Associated Diagnosis Comments ORAL HYGIENE INSTRUCTIONS Routine 2013 12:00 AM PST TOPICAL APPLICATION OF FLUORIDE ? EXCLUDING VARNISH Routine 04/08/2013 12:00 AM PST PROPHYLAXIS - CHILD Routine 04/08/2013 1 2:00 AM PST PERIODIC ORAL EVALUATION - ESTABLISHED PATIENT Routine 04/08/2013 12:00 AM PST TOPICAL APPLICATION OF FLUORIDE ? EXCLUDING VARNISH Routine 10/01/2012 12:00 AM PDT PROPHYLAXIS - CHILD Routine 10/01/2012 1 2:00 AM PDT PERIODIC ORAL EVALUATION - ESTABLISHED PATIENT Routine 10/01/2012 12:00 AM PDT BITEWINGS - TWO RADIOGRAPHIC IMAGES Routine 10/01/2012 12:00 AM PDT ADDITIONAL X-RAY Routine 10/01/2012 12:0 0 AM PDT SINGLE X-RAY Routine 10/01/2012 12:00 AM PDT BITEWINGS - FOUR RADIOGRAPHIC IMAGES Routine 04/05/2012 12:00 AM PST ADDITIONAL X-RAY Routine 04/05/2012 12:0 0 AM PST ADDITIONAL X-RAY Routine 04/05/2012 12:0 0 AM PST ADDITIONAL X-RAY Routine 04/05/2012 12:0 0 AM PST ADDITIONAL X-RAY Routine 04/05/2012 12:0 0 AM PST ADDITIONAL X-RAY Routine 04/05/2012 12:0 0 AM PST SINGLE X-RAY Routine 04/05/2012 12:00 AM PST TOPICAL APPLICATION OF FLUORIDE ? EXCLUDING VARNISH Routine 09/14/2011 12:00 AM PDT PROPHYLAXIS - CHILD Routine 09/14/2011 1 2:00 AM PDT COMPREHENSIVE ORAL EVALUATION - NEW OR ESTABLISHED PATIENT Routine 09/14/2011 12:00 AM PDT PANORAMIC RADIOGRAPHIC IMAGE Routine 09/14/2011 12:00 AM PDT BITEWINGS - FOUR RADIOGRAPHIC IMAGES Routine 09/14/2011 12:00 AM PDT ADDITIONAL X-RAY Routine 09/14/2011 12:0 0 AM PDT SINGLE X-RAY Routine 09/14/2011 12:00 AM PDT Visit Diagnoses Not on file
== END 2024-06-07 11:19 | disposition home or self-care (01) ==
LOC: HO.HMCFM 10:27
PROVIDERS: PCP Physician Assistant; Visit Provider Physician Assistant
DX: Z00.00 Encounter for general adult medical examination without abnormal findings (principal); G44.52 New daily persistent headache (NDPH); K59.00 Constipation, unspecified; F33.0 Major depressive disorder, recurrent, mild; F41.1 Generalized anxiety disorder

== ENCOUNTER → 2024-06-07 10:26 | Outpatient (BNVA) | payer OTHER, SELFPAY | PROVIDERS: PCP Physician Assistant; Visit Provider Physician Assistant | DX: Z00.00 Encounter for general adult medical examination without abnormal findings (principal); F33.0 Major depressive disorder, recurrent, mild; F41.1 Generalized anxiety disorder; G44.52 New daily persistent headache (NDPH); K59.00 Constipation, unspecified | CPT/HCPCS: 96127; 99212; 99395 ==

== ENCOUNTER 2024-06-28 11:25 | Outpatient (REF) | payer BC, SELFPAY ==
--- OUTSIDE RECORDS SUMMARY | 2024-06-28 12:25 | XMS_ITS | Encounter Summary ---
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 Role Phone Unavailable Primary Care Provider Unavailabl e Prior Encounters Date Type Department Care Team Description 03/06/2019 Converted 13x Documents [facility] [address] [place] [id number] <No scans attached> 03/06/2019 Converted 13x Documents [facility] [address] [place] [address] <No scans attached> 03/06/2019 Converted CPS Chart [facility] [address] [place] [id number] <No scans attached> 03/06/2019 Converted CPS Chart Documents [facility] [address] [place] [id number] <No scans attached> Plan of [...]
--- OUTSIDE RECORDS SUMMARY | 2024-06-28 12:25 | XMS_ITS | Clinical Summary ---
Author Organization [facility] Address [address] [place] [address] Care Team Providers Care Manager Workers Compensation Name Role Phone Unavailable Primary Care Provider [...]
[2024-06-28 13:45] LABS: MANUAL DIFF FLAG NO
[2024-06-28 13:56] LABS: Basophils Percent Auto 0.4 % (0-2); Eosinophils Absolute Auto 0.1 X10*3/uL (0.0-0.4); Eosinophils Percent Auto 3.1 % (0-4); Hematocrit 39.9 % (37.0-47.0); Hemoglobin 13.6 g/dl (12.0-16.0); Imm Gran Abs Auto 0.01 X10*3/uL (0.00-0.03); Imm Gran Pct Auto 0.2 % (0.0-0.4); Lymphocytes Absolute Auto 1.5 X10*3/uL (1.2-4.9); Lymphocytes Percent Auto 34.6 % (20-40); Mean Corpuscular HGB Conc 34.1 g/dl (31.0-35.0); Mean Corpuscular Hemoglobin 30.5 pg (27.0-33.0); Mean Corpuscular Volume 89.5 fL (80.0-98.0); Mean Platelet Volume 11.1 fL (9.4-12.3); Monocytes Absolute Auto 0.4 X10*3/uL (0.1-1.2); Monocytes Percent Auto 8.8 % (2-11); Neutrophils Absolute Auto 2.4 x10*3/uL (2.0-8.3); Neutrophils Percent Auto 52.9 % (45-73); Platelet Count 275 X10*3/uL (160-400); Red Blood Count 4.46 X10*6/uL (4.20-5.50); Red Cell Distribution Width 11.7 % (11.0-16.0); White Blood Count 4.5 X10*3/uL (4.8-10.8)
[2024-06-28 14:33] LABS: Alanine Aminotransferase 23 U/L (0-31); Albumin Level 4.3 g/dL (3.5-5.0); Anion Gap 11 (12-20); Aspartate Amino Transferase 33 U/L (5-31); Bilirubin Total 0.3 mg/dL (0.0-1.0); Blood Urea Nitrogen 9 mg/dL (9-16); Calcium 9.5 mg/dL (8.4-10.2); Carbon Dioxide 24 mmol/L (22-29); Chloride 110 mmol/L (96-108); Estimated Glomerular Filt Rate > 60; Glucose Fasting 101 mg/dL (60-99); Magnesium 2.1 mg/dL (1.6-2.6); Potassium 4.4 mmol/L (3.3-5.1); Sodium 141 mmol/L (135-145); Total Protein 7.2 g/dL (6.5-8.0)
[2024-06-28 14:42] LABS: Alkaline Phosphatase 62 U/L (39-117); TSH reflex Free T4 0.62 uIU/mL (0.32-4.0); Vitamin D 25-OH Total 78.3 ng/mL (>30)
[2024-06-28 14:45] LABS: Vitamin B12 291 pg/mL (200-900)
== END 2024-06-28 11:26 | disposition home or self-care (01) ==
LOC: HO.HMGCLDS 11:25
PROVIDERS: PCP Physician Assistant; Visit Provider Physician Assistant
DX: K59.00 Constipation, unspecified (principal); G44.52 New daily persistent headache (NDPH); F41.1 Generalized anxiety disorder; F33.0 Major depressive disorder, recurrent, mild
CPT/HCPCS: 36415; 80053; 82306; 82607; 82746; 83735; 84443; 85025

== ENCOUNTER 2024-07-05 11:08 | Outpatient (AMB) | payer BC, SELFPAY ==
--- NOTE | 2024-07-05 11:12 | A.OFFPC_ITS ---
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 Allergies ceftriaxone [From Rocephin] Allergy (Unknown, Verified 07/05/24 11:18) Hives Medication List - Last Reconciled 07/05/24 by Barb Cartagena PA-C bupropion HCl XL (Wellbutrin XL) 150 mg PO QAM escitalopram oxalate (Lexapro) 10 mg PO DAILY L.acidophil-L.plantar-Bifido 7 25 billion cell (up4 Probiotics Adult 50 Plus) caps PO magnesium 250 mg PO DAILY polyethylene glycol 3350 (Miralax) 17 grams PO DAILY Tobacco use date assessed: 07/05/24 Dental Screening Dental Screen Date: 07/05/24 Did you have a dental visit in the last 12 months?: No Did you have a dental problem in the last 6 months where you did not have access to dental care?: Yes Was dental information given to patient?: Patient declined HPI med check HPI Details Patient is a 24-year-old female who presents today for a f/uand she does have some concerns. She has a hx of ALL, anxiety, depression and GERD. Psych: She is feeling better since starting the Wellbutrin. She states that she does not have much anxiety or depression being on the 2 medications. She is still experiencing some side effects however of the Lexapro. She states that the constipation is a lot better but still somewhat present and she is still getting daily headaches.. Denies any SI/HI. -she tried sertraline and gabapentin. Heme/onc: dx in 2006 and [facility] [place] [facility] She was successfully treated with chemo. She states she was discharged from heme/onc about 10 years ago. Neuro: She states that she knows her insurance denied the MRI but she does feel like she needs this as she still has headaches despite adjusting the medication. She has a daily persistent headache. Her headache is present today and across the front of her head. It is light sensitive. She has not had an eye exam since 2017. She says that she is well hydrated. She has not tried any new supplements. She says that she will wake up with a headache at times or go to sleep with the headache and wake up with the same headache. She states sometimes the headache does not start until later in the day. It is almost every day and it is mainly on the right side but it can be on either side. No dizziness or vision changes. No nausea or vomiting. GI: Currently improved with MiraLax and stool softeners. Has been referred to GI. 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: [facility] Medical History (Updated 07/05/24 @ 14:09 by Barb Cartagena PA-C) Port-A-Cath in place Encounter for management and injection of depo-Provera Surgical History (Updated 07/05/24 @ 11:21 by Rosana Gomez CMA) History of removal of Port-a-Cath Social History (Updated 06/07/24 @ 10:44 by Rosana Gomez CMA) Housing: Apartment Alcohol intake: current Patient Tobacco Use Status: Never used Tobacco e-Cigarette/Vaping Use: Never Used Second Hand Smoke Exposure: No Substance Use Type: Marijuana service: No Current occupational status: unemployed Cognitive needs: No Hearing needs: No Vision needs: No Female Reproductive History Menstrual Age of Menarche: 10 Questionnaire Thrive Questionnaire Date Thrive assessed: 06/07/24 I am a: Patient What is your living situation today?: I have a steady place to live Within the past 12 months, did the food you bought not last and you didn't have the money to get more?: Sometimes True Within the past 12 months, did you worry whether your food would run out before you got money to buy more?: Sometimes True Do you have trouble paying for medicines?: No Do you have trouble getting transportation to medical appointments?: No Do you have trouble paying your heating and electricity bill?: No Do you have trouble taking care of your child, family member or friend?: No Do you have trouble with day-to-day activities such as bathing, preparing meals, shopping, managing finances, etc.?: I choose not to answer this question Are you currently unemployed and looking for a job?: Yes Are you interested in more education?: Yes Currently or been in a relationship where the following occur: No concerns reported THRIVE Score: 2 AUDIT C Alcohol Use Questionnaire (AUDIT-C) 1. How often do you have a drink containing alcohol?: 2-4 times a month 2. How many drinks containing alcohol do you have on a typical day when you are drinking?: 1 or 2 3. How often do you have six or more drinks on one occasion?: Never Total Score: 2 LUKAS-7 AMB Questionnaire LUKAS-7 Date LUKAS - 7 assessed: 06/07/24 Source: Developed by Drs. Pedro Pablo Muniz, Kristina Lakhani, Mikael Hunter and colleagues, with an educational good from [employer]. Physical exam (Primary Care) Vital Signs: Last Vital Signs Pulse 72 07/05/24 11:16 Resp 14 07/05/24 11:16 BP 112/82 07/05/24 11:16 Pulse Ox 98 07/05/24 11:16 Oxygen Delivery Method Room Air 07/05/24 11:16 BMI result Body Mass Index 30.7 Tobacco/Smoking Status: Tobacco use Status Tobacco use date assessed 07/05/24 07/05/24 11:23 Patient Tobacco Use Status Never used Tobacco 07/05/24 11:23 e-Cigarette/Vaping Use Never Used 07/05/24 11:23 Thrive Assessment: Date of Thrive Assessment Date Thrive assessed 06/07/24 07/05/24 11:23 Currently or been in a relationship where the following occur: No concerns r eported Const Orientation/consciousness: patient oriented x3 HENMT Ears: hearing grossly normal bilaterally Neck Thyroid: Thyroid normal Lymphatic: no lymphadenopathy noted Resp Auscultation: clear to auscultation bilaterally Cardio Rate: regular rate Rhythm: regular rhythm Heart sounds: S1 normal heart sound present and S2 normal heart sound present GI Inspection: Yes normal to inspection Palpation (GI): Soft to palpation and Other GI palpation findings present (nontender, no cva tenderness) Auscultation: normoactive bowel sounds Rectal Exam - Female: deferred Skin General skin exam: no rashes or lesions noted Neuro General: patient oriented x3, gait normal and no focal motor deficits Coding Level of Care Code Est Pt Level 4 (73063) Complex EM visit Add On G2211 Diagnoses Mild episode of recurrent major depressive disorder F33.0 Active/Remission status: currently active Major depression episode severity: mild Generalized anxiety disorder F41.1 New daily persistent headache G44.52 Allergic rhinitis J30.9 Assessment & Plan Assessment & Plan (1) Major depression, recurrent: Code(s): F33.9 - Major depressive disorder, recurrent, unspecified Category: Medical Qualifiers: Active/Remission status: currently active Major depression episode severity: mild Qualified Code(s): F33.0 - Major depressive disorder, recurrent, mild Plan: Increase Wellbutrin. Discontinue Lexapro (2) Generalized anxiety disorder: Code(s): F41.1 - Generalized anxiety disorder Category: Medical Plan: As above. She will let me know if anything worsens or changes. (3) New daily persistent headache: Code(s): G44.52 - New daily persistent headache (NDPH) Category: Medical Plan: MRI ordered. We will follow up pending test results. She does appear grossly neurologically intact today. (4) Allergic rhinitis: Code(s): J30.9 - Allergic rhinitis, unspecified Category: Medical Plan: Reports seasonal allergies with the recent change in weather. We will try Zyrtec and Flonase. Orders: Orders MR head/brain wo con Today G44.52 - New daily persistent headache (NDPH) Medications: New bupropion HCl XL (Wellbutrin XL) 300 mg PO QAM 90 tabs 3RF cetirizine (Zyrtec) 10 mg PO DAILY 90 tabs 0RF fluticasone propionate 50 mcg/actuation (Flonase Allergy Relief) administer into each nostril 1 spray intranasal DAILY 16 grams 1RF Discontinued bupropion HCl XL (Wellbutrin XL) Discontinued Reason: Doctor's Order 150 mg PO QAM 90 tabs 0RF escitalopram oxalate (Lexapro) Discontinued Reason: Doctor's Order 10 mg PO DAILY 90 tabs 0RF
[2024-07-05 11:16] VITALS: BP 112/82; PULSE 72; RESP 14; O2SAT 98; BMI 30.7
--- OUTSIDE RECORDS SUMMARY | 2024-07-05 12:29 | XMS_ITS | Encounter Summary ---
Author Organization [facility] [place] [address] [place] [address] Care Team Providers Care Jewelry Facer Name Role Phone Unavailable Primary Care Provider Unavailabl e Prior Encounters Date Type Department Care Team Description 03/06/2019 Converted 13x Documents [facility] [address] [place] [id number] <No scans attached> 03/06/2019 Converted 13x Documents [facility] [address] [place] [id number] <No scans attached> 03/06/2019 Converted [...]
--- OUTSIDE RECORDS SUMMARY | 2024-07-05 12:29 | XMS_ITS | Clinical Summary ---
Author Organization [facility] [place] [address] [place] [address] Care Team Providers Care Button Inspector Name Role Phone Unavailable Primary Care Provider [...]
== END 2024-07-05 12:07 | disposition home or self-care (01) ==
LOC: HO.HMCFM 11:09
PROVIDERS: PCP Physician Assistant; Visit Provider Physician Assistant
DX: F33.0 Major depressive disorder, recurrent, mild (principal); F41.1 Generalized anxiety disorder; G44.52 New daily persistent headache (NDPH); J30.9 Allergic rhinitis, unspecified

== ENCOUNTER → 2024-07-05 11:08 | Outpatient (BNVA) | payer BC, SELFPAY | PROVIDERS: PCP Physician Assistant; Visit Provider Physician Assistant | DX: Z13.89 Encounter for screening for other disorder (principal) ==

== ENCOUNTER 2024-07-26 16:18 | Outpatient (REF) | payer BC, SELFPAY ==
--- NOTE | ~2024-07-26 | MR_ITS ---
EXAMINATION: MR BRAIN WITHOUT CONTRAST CLINICAL INFORMATION: Headache. COMPARISON: None available. TECHNIQUE: MRI of the brain was obtained using routine sequences without contrast. FINDINGS: No restricted diffusion. No acute intracranial hemorrhage, mass effect, midline shift, hydrocephalus or herniation. Sam-white matter differentiation is normal. Posterior cranial fossa contents demonstrated no signal abnormality or mass effect. Flow-void signal within the main cerebral vessels is normal. Sellar/suprasellar region demonstrated no signal abnormality or gross masses. Craniocervical junction demonstrates normal position of the cerebellar tonsils. 10 mm retention cyst, left sphenoid sinus/left pterygoid recess. MR/MR head/brain wo con IMPRESSION: No acute or structural brain abnormality. Electronically signed by: Maximilian Molina MD 07/27/2024 07:18 AM EDT
== END 2024-07-26 16:19 | disposition home or self-care (01) ==
LOC: HO.MRI 16:18
PROVIDERS: PCP Physician Assistant; Visit Provider Physician Assistant
DX: G44.52 New daily persistent headache (NDPH) (principal); F41.1 Generalized anxiety disorder; F33.0 Major depressive disorder, recurrent, mild
CPT/HCPCS: 70551

== ENCOUNTER → 2024-07-26 17:10 | Outpatient (BNV) | payer BC, SELFPAY | PROVIDERS: PCP Physician Assistant; Visit Provider Radiology Diagnostic Radiology | DX: R51.9 Headache, unspecified (principal) | CPT/HCPCS: 70551 ==

== ENCOUNTER 2024-07-31 12:29 | Outpatient (REF) | payer BC, SELFPAY ==
--- OUTSIDE RECORDS SUMMARY | 2024-07-31 13:50 | XMS_ITS | Clinical Summary ---
Author Organization [facility] Health Address [address] [address] [address] [facility] [address] [place] [address] Care Team Providers Care Major Gifts Director Name Role Phone Unavailable Primary Care Provider [...]
[2024-07-31 16:38] LABS: Alanine Aminotransferase 33 U/L (0-31); Albumin Level 4.3 g/dL (3.5-5.0); Alkaline Phosphatase 57 U/L (39-117); Aspartate Amino Transferase 26 U/L (5-31); Bilirubin Direct 0.2 mg/dL (0.0-0.5); Bilirubin Total 0.4 mg/dL (0.0-1.0); Total Protein 6.9 g/dL (6.5-8.0)
== END 2024-07-31 12:30 | disposition home or self-care (01) ==
LOC: HO.HMGCLDS 12:29
PROVIDERS: PCP Physician Assistant; Visit Provider Physician Assistant
DX: R79.89 Other specified abnormal findings of blood chemistry (principal)
CPT/HCPCS: 36415; 80076

== ENCOUNTER 2024-08-17 10:03 | Outpatient (AMB) | payer BC, SELFPAY ==
--- NOTE | 2024-08-17 10:10 | A.OFFPC_ITS ---
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 She has a hx of ALL, anxiety, depression and GERD. Psych: She is feeling better since starting the Wellbutrin. She would like to try the Lexapro again as it was helpful for her anxiety. Initially she thought it caused headaches but now she is wondering if that was caused by her OCPs. -she tried sertraline, lexapro and gabap entin. Heme/onc: dx in 2006 and followed in [place] at [facility]. She was successfully treated with chemo. She states she was discharged from heme/onc about 10 years ago. Neuro: She had an overall reassuring MRI. Still gets frequent headaches although a lot better since stopping control. She would like to see Neurology. GI: Currently improved with MiraLax and stool softeners. Has been referred to GI. 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: [facility] Medical History (Updated 08/17/24 @ 10:26 by Barb Cartagena PA-C) Port-A-Cath in place Encounter for management and injection of depo-Provera Surgical History (Updated 07/05/24 @ 11:21 by Rosana Gomez CMA) History of removal of Port-a-Cath Social History (Updated 06/07/24 @ 10:44 by Rosana Gomez CMA) Housing: Apartment Alcohol intake: current Patient Tobacco Use Status: Never used Tobacco e-Cigarette/Vaping Use: Never Used Second Hand Smoke Exposure: No Substance Use Type: Marijuana service: No Current occupational status: unemployed Cognitive needs: No Hearing needs: No Vision needs: No Female Reproductive History Menstrual Age of Menarche: 10 Questionnaire Thrive Questionnaire Date Thrive assessed: 06/07/24 I am a: Patient What is your living situation today?: I have a steady place to live Within the past 12 months, did the food you bought not last and you didn't have the money to get more?: Sometimes True Within the past 12 months, did you worry whether your food would run out before you got money to buy more?: Sometimes True Do you have trouble paying for medicines?: No Do you have trouble getting transportation to medical appointments?: No Do you have trouble paying your heating and electricity bill?: No Do you have trouble taking care of your child, family member or friend?: No Do you have trouble with day-to-day activities such as bathing, preparing meals, shopping, managing finances, etc.?: I choose not to answer this question Are you currently unemployed and looking for a job?: Yes Are you interested in more education?: Yes Currently or been in a relationship where the following occur: No concerns reported THRIVE Score: 2 AUDIT C Alcohol Use Questionnaire (AUDIT-C) 1. How often do you have a drink containing alcohol?: 2-3 times a week 2. How many drinks containing alcohol do you have on a typical day when you are drinking?: 1 or 2 3. How often do you have six or more drinks on one occasion?: Never Total Score: 3 LUKAS-7 AMB Questionnaire LUKAS-7 Date LUKAS - 7 assessed: 06/07/24 Source: Developed by Drs. Pedro Pablo Muniz, Kristina Lakhani, Mikael Hunter and colleagues, with an educational good from [facility]. Physical exam (Primary Care) Vital Signs: Last Vital Signs Temp 99.2 F 08/17/24 10:12 Pulse 88 08/17/24 10:12 Resp 12 08/17/24 10:12 BP 94/64 08/17/24 10:12 Pulse Ox 99 08/17/24 10:12 Oxygen Delivery Method Room Air 08/17/24 10:12 BMI result Body Mass Index 31.1 Tobacco/Smoking Status: Tobacco use Status Tobacco use date assessed 08/17/24 08/17/24 10:14 Patient Tobacco Use Status Never used Tobacco 08/17/24 10:11 e-Cigarette/Vaping Use Never Used 08/17/24 10:11 Thrive Assessment: Date of Thrive Assessment Date Thrive assessed 06/07/24 08/17/24 10:11 Currently or been in a relationship where the following occur: No concerns reported Const Orientation/consciousness: patient oriented x3 HENMT Ears: hearing grossly normal bilaterally Neck Thyroid: Thyroid normal Lymphatic: no lymphadenopathy noted Resp Auscultation: clear to auscultation bilaterally Cardio Rate: regular rate Rhythm: regular rhythm Heart sounds: S1 normal heart sound present and S2 normal heart sound present GI Inspection: Yes normal to inspection Palpation (GI): Soft to palpation and Other GI palpation findings present (nontender, no cva tenderness) Auscultation: normoactive bowel sounds Rectal Exam - Female: deferred Skin General skin exam: no rashes or lesions noted Neuro General: patient oriented x3, gait normal and no focal motor deficits Results Reviewed Results Reviewed: FINDINGS: No restricted diffusion. No acute intracranial hemorrhage, mass effect, midline shift, hydrocephalus or herniation. Sam-white matter differentiation is normal. Posterior cranial fossa contents demonstrated no signal abnormality or mass effect. Flow-void signal within the main cerebral vessels is normal. Sellar/suprasellar region demonstrated no signal abnormality or gross masses. Craniocervical junction demonstrates normal position of the cerebellar tonsils. 10 mm retention cyst, left sphenoid sinus/left pterygoid recess. MR/MR head/brain wo con IMPRESSION: No acute or structural brain abnormality. Coding Level of Care Code Est Pt Level 4 (90358) Complex EM visit Add On G2211 Diagnoses New daily persistent headache G44.52 Elevated LFTs R79.89 Generalized anxiety disorder F41.1 Assessment & Plan Assessment & Plan (1) New daily persistent headache: Code(s): G44.52 - New daily persistent headache (NDPH) Category: Medical Plan: Referral to neurology. Improved. (2) Elevated LFTs: Code(s): R79.89 - Other specified abnormal findings of blood chemistry Category: Medical Plan: Labs ordered. Ultrasound pending (3) Generalized anxiety disorder: Code(s): F41.1 - Generalized anxiety disorder Category: Medical Plan: We will trial Lexapro again. If increase in headache she will let me know. Orders: Orders Basic Metabolic Panel Today R79.89 - Other specified abnormal findings of blood chemistry Liver Panel Today R79.89 - Other specified abnormal findings of blood chemistry Complete Blood Count Auto Diff Today R79.89 - Other specified abnormal findings of blood chemistry Referrals Neurology Referral G44.52 - New daily persistent headache (NDPH) Medications: New escitalopram oxalate (Lexapro) 10 mg PO DAILY 90 tabs 0RF
[2024-08-17 10:12] VITALS: BP 94/64; PULSE 88; RESP 12; TEMP 37.3; O2SAT 99; BMI 31.1
--- OUTSIDE RECORDS SUMMARY | 2024-08-17 10:44 | XMS_ITS | Clinical Summary ---
Author Organization [facility] Health Address [address] [facility] [address] [facility] [address] [place] [address] Care Team Providers Care Rn Circulating Name Role Phone Unavailable Primary Care Provider [...]
== END 2024-08-17 10:34 | disposition home or self-care (01) ==
LOC: HO.HMCFM 10:04
PROVIDERS: PCP Physician Assistant; Visit Provider Physician Assistant
DX: G44.52 New daily persistent headache (NDPH) (principal); R79.89 Other specified abnormal findings of blood chemistry; F41.1 Generalized anxiety disorder

== ENCOUNTER 2024-09-18 12:21 | Outpatient (REF) | payer BC, SELFPAY ==
--- OUTSIDE RECORDS SUMMARY | 2024-09-18 12:54 | XMS_ITS | Clinical Summary ---
Author Organization [facility] Health Address [address] [address] [facility] [address] [place] [address] Care Team Providers Care Activities Volunteer Name Role Phone Unavailable Primary Care Provider [...]
[2024-09-18 16:19] LABS: MANUAL DIFF FLAG NO
[2024-09-18 16:22] LABS: Hematocrit 39.1 % (37.0-47.0); Hemoglobin 13.8 g/dl (12.0-16.0); Imm Gran Abs Auto 0.02 X10*3/uL (0.00-0.03); Imm Gran Pct Auto 0.3 % (0.0-0.4); Lymphocytes Absolute Auto 1.7 X10*3/uL (1.2-4.9); Mean Corpuscular HGB Conc 35.3 g/dl (31.0-35.0); Mean Corpuscular Hemoglobin 31.0 pg (27.0-33.0); Mean Corpuscular Volume 87.9 fL (80.0-98.0); NRBC Abs Auto 0.000 X10*3/uL (0.0-0.012); NRBC Pct Auto 0.0 /100WBC (0.0-0.2); Platelet Count 253 X10*3/uL (160-400); Red Blood Count 4.45 X10*6/uL (4.20-5.50); White Blood Count 5.8 X10*3/uL (4.8-10.8)
[2024-09-18 16:45] LABS: Alanine Aminotransferase 18 U/L (0-31); Albumin Level 4.5 g/dL (3.5-5.0); Alkaline Phosphatase 65 U/L (39-117); Anion Gap 10 (12-20); Aspartate Amino Transferase 23 U/L (5-31); Blood Urea Nitrogen 8 mg/dL (9-16); Calcium 9.3 mg/dL (8.4-10.2); Carbon Dioxide 23 mmol/L (22-29); Chloride 109 mmol/L (96-108); Estimated Glomerular Filt Rate > 60; Potassium 4.0 mmol/L (3.3-5.1); Sodium 138 mmol/L (135-145); Total Protein 7.2 g/dL (6.5-8.0)
== END 2024-09-18 12:22 | disposition home or self-care (01) ==
LOC: HO.HMGCLDS 12:21
PROVIDERS: PCP Physician Assistant; Visit Provider Physician Assistant
DX: R79.89 Other specified abnormal findings of blood chemistry (principal)
CPT/HCPCS: 36415; 80048; 80076; 85025

== ENCOUNTER 2024-09-25 08:53 | Outpatient (REF) | payer BC, SELFPAY ==
--- NOTE | ~2024-09-25 | US_ITS ---
EXAMINATION: US ABDOMEN COMPLETE WITH LIVER ELASTOGRAPHY HISTORY: R79.89 - Other specified abnormal findings of blood chemistry TECHNIQUE: Real-time grayscale ultrasound imaging of the abdomen was performed and images were reviewed. COMPARISON: There are no prior studies available for comparison. FINDINGS: Liver: The right lobe of the liver measures 13.4 cm in size. The left lobe of the liver measures 9.0 cm in size. The liver demonstrates normal homogeneous echotexture. No focal mass or intrahepatic biliary ductal dilatation is identified. There is normal hepatopedal flow in the portal vein. Ultrasound elastography of the liver was performed with 10 separate measurements of the liver parenchyma with the patient in the supine position. Measurements were obtained approximately 2 cm below Marily's capsule and perpendicular to the capsule. The median shear wave velocity is 1.47 m/s. The interquartile range/median (IQR/median) is 0.12. Gallbladder and biliary tree: Multiple polyps are seen in the gallbladder measuring up to 3 mm in size. The gallbladder is otherwise unremarkable, without evidence of calculi, wall thickening, or pericholecystic fluid. There is no sonographic Keane sign. The common bile duct is normal in caliber measuring 2 mm. Kidneys: The right kidney measures 9.1 cm in length. The left kidney measures 9.9 cm in length. The kidneys are unremarkable, without evidence of masses, hydronephrosis, or calculi. Pancreas: The pancreatic head, neck, and body are unremarkable. The pancreatic tail is obscured by bowel gas. Spleen: The spleen is normal in size and contour, measuring 9.7 cm in length. Abdominal aorta and inferior vena cava: The visualized portions of the abdominal aorta and inferior vena cava are normal in caliber. There is no free fluid in the abdomen. US/US abdomen comp w elastography IMPRESSION: Multiple gallbladder polyps. Otherwise unremarkable abdominal ultrasound. The median shear wave velocity in the liver is 1.47 m/s, corresponding to a median liver stiffness of 6.79 kPa. The IQR/median value is 0.12. This is indicative of a quality data set. Findings are indicative of a low elastography value which rules out advanced chronic liver disease in asymptomatic patients. REFERENCE: Society of Radiologists in Ultrasound Liver Stiffness Thresholds (2020): LIVER STIFFNESS THRESHOLDS: *Shear wave velocity less than 1.3 m/s (Liver Stiffness equal or less than 5 kPa): High probability of being normal. *Shear wave velocity less than 1.7 m/s (Liver Stiffness less than 9 kPa): In the absence of other known clinical signs, rules out compensated advanced chronic liver disease. *Shear wave velocity between 1.7-2.1 m/s (Liver Stiffness 9-13 kPa): Suggestive of compensated advanced chronic liver disease but need further test for confirmation. *Shear wave velocity between 2.1-2.4 m/s (Liver Stiffness 13-17 kPa): Rules in compensated advanced chronic liver disease. *Shear wave velocity greater than 2.4 m/s (Liver Stiffness over 17 kPa): Suggestive of clinically significant portal hypertension. QUALITY OF DATA SET: *IQR/Median value equal or less than 0.15 implies a quality data set. *IQR/Median value over 0.15 implies a poor quality data set. SIGNIFICANT CHANGE FROM PRIOR EXAM: Significant change if liver stiffness measurement is 10% or greater from prior exam. OTHER CONSIDERATIONS: The stage of liver fibrosis may be overestimated in the setting of acute hepatitis, liver inflammation, elevated liver function tests, hepatic vascular congestion, obstructive cholestasis, non-fasting state, and infiltrative diseases such as amyloidosis and lymphoma. In some patients with NAFLD, the liver stiffness thresholds for compensated advanced chronic liver disease may be lower. In causes other than viral hepatitis and NAFLD, liver stiffness thresholds are not well established. Electronically signed by: Pedro Pablo Miranda MD 09/25/2024 09:50 AM EDT
--- OUTSIDE RECORDS SUMMARY | 2024-09-25 09:14 | XMS_ITS | Clinical Summary ---
Author Organization [facility] Health Address [address] [facility] [place] [address] Care Team Providers Care Press Bucker Name Role Phone Unavailable Primary Care Provider [...]
== END 2024-09-25 08:54 | disposition home or self-care (01) ==
LOC: HO.US 08:53
PROVIDERS: PCP Physician Assistant; Visit Provider Physician Assistant
DX: R79.89 Other specified abnormal findings of blood chemistry (principal)
CPT/HCPCS: 76700; 76981

== ENCOUNTER → 2024-09-25 08:55 | Outpatient (BNV) | payer BC, SELFPAY | PROVIDERS: PCP Physician Assistant; Visit Provider Radiology Diagnostic Radiology | DX: K82.4 Cholesterolosis of gallbladder (principal) | CPT/HCPCS: 76700 ==

== ENCOUNTER 2024-09-27 09:31 | Outpatient (AMB) | payer BC, SELFPAY ==
--- NOTE | 2024-09-27 09:33 | A.OFFPC_ITS ---
Vital Signs 09/27/24 09:43 Height 5 ft 2.6 in Weight 166 lb 2 oz BMI 29.8 BP 102/68 Blood Pressure Location Rt brachial Position Sitting Respiration 12 Pulse 94 Pulse Source Pulse Oximeter Temp 98.6 F Temp Source Temporal Artery Scan Pulse Oximetry (%) 98 Oxygen Delivery Method Room Air Intake Visit Reasons: anxiety med adjustment Intake Note: Sarah presents in the office today for anxiety medication adjustment. Patient recently had a US of her liver. Allergies ceftriaxone (From Rocephin) Allergy (Unknown, Verified 09/27/24 09:37) Hives Medication List - Last Reconciled 09/27/24 by Barb Cartagena PA-C biotin 800 mcg PO DAILY bupropion HCl XL (Wellbutrin XL) 150 mg PO QAM cetirizine (Zyrtec) 10 mg PO DAILY fluticasone propionate 50 mcg/actuation (Flonase Allergy Relief) 1 spray intranasal DAILY L.acidophil-L.plantar-Bifido 7 25 billion cell (up4 Probiotics Adult 50 Plus) caps PO magnesium 250 mg PO DAILY polyethylene glycol 3350 (Miralax) 17 grams PO DAILY Tobacco use date assessed: 09/27/24 Dental Screening Dental Screen Date: 09/27/24 Did you have a dental visit in the last 12 months?: No Did you have a dental problem in the last 6 months where you did not have access to dental care?: No Was dental information given to patient?: Yes HPI anxiety med adjustment HPI Details Patient is a 24-year-old female who presents today for a f/u. She has a hx of ALL, anxiety, depression and GERD. Psych: She does feel that the Wellbutrin is helpful but being back on the Lexapro she is not sure that this is significantly helping her. She does get some intermittent headaches still but attributes these to either lack of caffeine, or her period. -she tried sertraline, lexapro and gabap entin. Heme/onc: dx in 2006 and [facility] [place] [facility] She was successfully treated with chemo. She states she was discharged from heme/onc about 10 years ago. Neuro: She had an overall reassuring MRI. Still gets frequent headaches although a lot better since stopping control. She has been referred to Neurology per her request GI: Currently improved with MiraLax and stool softeners. Has been referred to GI and seeing them 10/9. LFTs have normalized. We did do an abdominal ultrasound given the elevated LFTs and it did note gallbladder polyps. This has been stressing her out. 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: [facility] Medical History (Updated 09/27/24 @ 10:33 by Barb Cartagena PA-C) Port-A-Cath in place Encounter for management and injection of depo-Provera Surgical History (Updated 07/05/24 @ 11:21 by Rosana Gomez CMA) History of removal of Port-a-Cath Family History (Updated 09/27/24 @ 09:42 by Nivia Singh MA) Mother FHx: mental illness Anxiety Bipolar 1 disorder Father OCD (obsessive compulsive disorder) ADHD Substance abuse Alcoholism Paternal Grandfather Bipolar 1 disorder Depression OCD (obsessive compulsive disorder) Substance abuse Alcoholism Paternal Uncle ADHD Substance abuse Alcoholism Social History (Updated 09/27/24 @ 09:42 by Nivia Singh MA) Housing: Apartment Alcohol intake: current Patient Tobacco Use Status: Never used Tobacco e-Cigarette/Vaping Use: Never Used Second Hand Smoke Exposure: No Substance Use Type: Marijuana service: No Current occupational status: unemployed Cognitive needs: No Hearing needs: No Vision needs: No Female Reproductive History Menstrual Age of Menarche: 10 Questionnaire PHQ-9 Over the last 2 weeks, how often have you been bothered by any of the following problems? 1. Little interest or pleasure in doing things: several days 2. Feeling down, depressed, or hopeless: several days 3. Trouble falling or staying asleep, or sleeping too much: not at all 4. Feeling tired or having little energy: several days 5. Poor appetite or overeating: more than half the days 6. Feeling bad about yourself - or that you are a failure or have let yourself or your family down: several days 7. Trouble concentrating on things, such as reading the newspaper or watching television: several days 8. Moving or speaking so slowly that other people could have noticed. Or the opposite - being so fidgety or restless that you have been moving around a lot more than usual: not at all 9. Thoughts that you would be better off or of hurting yourself in some way: not at all Total score: 7 Depression Screening Interpretation: Positive Depression Screening Done: Yes 59126 - PHQ-9 Billing: Yes Source: Developed by Drs. Pedro Pablo Muniz, Mikael Castrejon and colleagues, with an educational good from [employer]. Thrive Questionnaire Date Thrive assessed: 06/07/24 I am a: Patient What is your living situation today?: I have a steady place to live Within the past 12 months, did the food you bought not last and you didn't have the money to get more?: Sometimes True Within the past 12 months, did you worry whether your food would run out before you got money to buy more?: Sometimes True Do you have trouble paying for medicines?: No Do you have trouble getting transportation to medical appointments?: No Do you have trouble paying your heating and electricity bill?: No Do you have trouble taking care of your child, family member or friend?: No Do you have trouble with day-to-day activities such as bathing, preparing meals, shopping, managing finances, etc.?: I choose not to answer this question Are you currently unemployed and looking for a job?: Yes Are you interested in more education?: Yes Currently or been in a relationship where the following occur: No concerns reported THRIVE Score: 2 LUKAS-7 AMB Questionnaire LUKAS-7 Date LUKAS - 7 assessed: 09/27/24 Feeling nervous, anxious, or on edge: 1 = Several days Not being able to stop or control worryin = Several days Worrying too much about different things: 3 = Nearly every day Trouble relaxin = Not at all Being so restless that it is hard to sit still: 3 = Nearly every day Becoming easily annoyed or irritable: 1 = Several days Feeling afraid as if something awful might happen: 1 = Several days Total LUKAS-7 score (0-4 normal; 5-9 mild; 10-14 moderate; 15-21 severe): 10 Source: Developed by Drs. Pedro Pablo Muniz, Mikael Castrejon and colleagues, with an educational good from [employer]. LUKAS-7 Assessment Billing LUKAS-7 Assessment Tool: LUKAS-7 Assessment 28246 Physical exam (Primary Care) Vital Signs: Last Vital Signs Temp 98.6 F 09/27/24 09:43 Pulse 94 09/27/24 09:43 Resp 12 09/27/24 09:43 BP 102/68 09/27/24 09:43 Pulse Ox 98 09/27/24 09:43 Oxygen Delivery Method Room Air 09/27/24 09:43 BMI result Body Mass Index 29.8 Tobacco/Smoking Status: Tobacco use Status Tobacco use date assessed 09/27/24 09/27/24 09:46 Patient Tobacco Use Status Never used Tobacco 09/27/24 09:42 e-Cigarette/Vaping Use Never Used 09/27/24 09:42 PHQ-9: PHQ-9 Score PHQ-9: Total score 7 09/27/24 10:24 Depression Screening Interpretation: Positive Thrive Assessment: Date of Thrive Assessment Date Thrive assessed 06/07/24 09/27/24 09:34 Currently or been in a relationship where the following occur: No concerns reported Const Orientation/consciousness: patient oriented x3 HENMT Ears: hearing grossly normal bilaterally Neck Thyroid: Thyroid normal Lymphatic: no lymphadenopathy noted Resp Auscultation: clear to auscultation bilaterally Cardio Rate: regular rate Rhythm: regular rhythm Heart sounds: S1 normal heart sound present and S2 normal heart sound present GI Inspection: Yes normal to inspection Palpation (GI): Soft to palpation and Other GI palpation findings present (nontender, no cva tenderness) Auscultation: normoactive bowel sounds Rectal Exam - Female: deferred Skin General skin exam: no rashes or lesions noted Neuro General: patient oriented x3, gait normal and no focal motor deficits Results Reviewed Results Reviewed: Laboratory Tests 09/18/24 12:25 WBC 5.8 RBC 4.45 Hgb 13.8 Hct 39.1 Plt Count 253 Sodium 138 Potassium 4.0 Chloride 109 H Carbon Dioxide 23 Anion Gap 10 L BUN 8 L Creatinine 0.67 Estimated GFR > 60 Random Glucose 93 AST 23 ALT 18 Alkaline Phosphatase 65 Coding Level of Care Code Est Pt Level 4 (43098) Complex EM visit Add On G2211 Diagnoses Gallbladder polyp K82.4 Mild episode of recurrent major depressive disorder F33.0 Active/Remission status: currently active Major depression episode severity: mild Generalized anxiety disorder F41.1 Additional Codes LUKAS-7 Assessment Billing - LUKAS-7 Assessment Tool: LUKAS-7 Assessment 72535 ([id number]) PHQ-9 - 11084 - PHQ-9 Billing: Yes ([id number]) Assessment & Plan Assessment & Plan (1) Gallbladder polyp: Code(s): K82.4 - Cholesterolosis of gallbladder Category: Medical Plan: wants to see specialist referral to gen surgery placed (2) Major depression, recurrent: Code(s): F33.9 - Major depressive disorder, recurrent, unspecified Category: Medical Qualifiers: Active/Remission status: currently active Major depression episode severity: mild Qualified Code(s): F33.0 - Major depressive disorder, recurrent, mild Plan: stop lexapro start effexor continue wellbutrn short term follow up 4-6 weeks or sooner prn (3) Generalized anxiety disorder: Code(s): F41.1 - Generalized anxiety disorder Category: Medical Plan: see above Medications: New venlafaxine ER (Effexor XR) 37.5 mg PO BEDTIME 90 caps 0RF
[2024-09-27 09:43] VITALS: BP 102/68; PULSE 94; RESP 12; TEMP 37; O2SAT 98; BMI 29.8
--- OUTSIDE RECORDS SUMMARY | 2024-09-27 10:00 | XMS_ITS | Clinical Summary ---
Author Organization [facility] Health Address [address] [place] [address] Care Team Providers Care Lumber Racker Name Role Phone Unavailable Primary Care Provider [...]
== END 2024-09-27 10:42 | disposition home or self-care (01) ==
LOC: HO.HMCFM 09:31
PROVIDERS: PCP Physician Assistant; Visit Provider Physician Assistant
DX: K82.4 Cholesterolosis of gallbladder (principal); F33.0 Major depressive disorder, recurrent, mild; F41.1 Generalized anxiety disorder

== ENCOUNTER → 2024-09-27 09:31 | Outpatient (BNVA) | payer BC, SELFPAY | PROVIDERS: PCP Physician Assistant; Visit Provider Physician Assistant | DX: K82.4 Cholesterolosis of gallbladder (principal); F33.0 Major depressive disorder, recurrent, mild; K21.9 Gastro-esophageal reflux disease without esophagitis; F41.1 Generalized anxiety disorder | CPT/HCPCS: 96127 ==

== ENCOUNTER 2024-11-03 10:25 | Outpatient (AMB) | payer BC, SELFPAY ==
--- NOTE | 2024-11-03 10:35 | MHC.OFFVIS ---
Vital Signs 11/03/24 10:47 Height 5 ft 2 in Weight 169 lb BMI 30.9 BP 110/64 Blood Pressure Location Lt brachial Position Sitting Pulse 75 Intake Visit Reasons: Cholesterolosis of gallbladder Intake Note: Patient is seen in office for evaluation of the gallbladder. 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 Accompanied by: Self / Same As Patient Allergies ceftriaxone (From Rocephin) Allergy (Unknown, Verified 11/03/24 10:41) Hives Medication List - Last Reconciled 11/03/24 by Paul Abdullahi MD biotin 800 mcg PO DAILY bupropion HCl XL (Wellbutrin XL) 150 mg PO QAM cetirizine (Zyrtec) 10 mg PO DAILY fluticasone propionate 50 mcg/actuation (Flonase Allergy Relief) 1 spray intranasal DAILY L.acidophil-L.plantar-Bifido 7 25 billion cell (up4 Probiotics Adult 50 Plus) caps PO magnesium 250 mg PO DAILY polyethylene glycol 3350 (Miralax) 17 grams PO DAILY venlafaxine ER (Effexor XR) 37.5 mg PO BEDTIME HPI Comments Details: 24-year-old female patient presenting for evaluation of a recently identified gallbladder polyp. It was noted to have elevated liver function tests and subsequently was evaluated with an ultrasound of the abdomen. The ultrasound performed on 09/25/2024 revealed multiple polyps seen on the gallbladder measuring up to 3 mm in size. The gallbladder was otherwise unremarkable without evidence of calculi, wall thickening or pericholecystic fluid. There was no sonographic Keane sign common bile duct was normal in caliber measuring 2 mm. She reports occasional abdominal pain when she is constipated but this improved after having a bowel movement. She denies any nausea, vomiting, fever or chills. She reports that her liver functions have subsequently improved dietary changes. [facility] Medical History Port-A-Cath in place Encounter for management and injection of depo-Provera Surgical History History of removal of Port-a-Cath Family History Mother FHx: mental illness Anxiety Bipolar 1 disorder Father OCD (obsessive compulsive disorder) ADHD Substance abuse Alcoholism Paternal Grandfather Bipolar 1 disorder Depression OCD (obsessive compulsive disorder) Substance abuse Alcoholism Paternal Uncle ADHD Substance abuse Alcoholism Social History Housing: Apartment Alcohol intake: current Patient Tobacco Use Status: Never used Tobacco e-Cigarette/Vaping Use: Never Used Second Hand Smoke Exposure: No Substance Use Type: Marijuana service: No Current occupational status: unemployed Cognitive needs: No Hearing needs: No Vision needs: No Female Reproductive History Menstrual Age of Menarche: 10 Review of Systems Const All systems reviewed & are unremarkable except as noted in HPI and below Physical Exam Vital Signs: Last Vital Signs Pulse 75 11/03/24 10:47 BP 110/64 11/03/24 10:47 BMI result Body Mass Index 30.9 Const General: cooperative and no acute distress Nutritional Appearance: well nourished Orientation/consciousness: patient oriented x3 Limitations: no limitations HEENT Head: Yes normocephalic and Yes atraumatic Ears: hearing grossly normal bilaterally Resp Effort & Inspection: normal respiratory effort, no audible wheezes, no cough and no respiratory distress Cardio Jugular venous distension: no JVD GI Inspection: Yes normal to inspection Palpation (GI): Soft to palpation, nontender, no guarding and not rigid Skin Other: Warm, dry, no rash Neuro General: patient oriented x3 Extrem General: Yes no clubbing, cyanosis or edema Assessment & Plan Assessment & Plan (1) Elevated LFTs: Code(s): R79.89 - Other specified abnormal findings of blood chemistry Category: Medical (2) Gallbladder polyp: Code(s): K82.4 - Cholesterolosis of gallbladder Category: Medical Plan 24-year-old female patient presenting with a history of elevated liver function tests found to have multiple gallbladder polyps on a recent ultrasound. Her liver functions have subsequently returned to normal. The patient is otherwise asymptomatic with no classic gallbladder symptoms at this time. I reviewed the indications for surgical management of gallbladder polyps. Her gallbladder polyp is only 3 mm and there are multiple gallbladder polyps which generally is less suspicious then a single large gallbladder polyp. Surgical intervention is recommended only for polyps which are increasing in size, causing symptoms, or are greater than 10 mm. I would recommend a six-month follow-up ultrasound to document stability which was ordered today. She will return following this ultrasound to review the results. She expressed understanding and agrees with the plan. Orders: Orders US abdomen limited 6 Months K82.4 - Cholesterolosis of gallbladder, R79.89 - Other specified abnormal findings of blood chemistry Coding Level of Care Code New Pt Level 4 (88316) Diagnoses Elevated LFTs R79.89 Gallbladder polyp K82.4
[2024-11-03 10:47] VITALS: BP 110/64; PULSE 75; BMI 30.9
--- OUTSIDE RECORDS SUMMARY | 2024-11-03 11:01 | XMS_ITS | Encounter Summary ---
Author Organization [facility] Health Address [address] [place] [address] Care Team Providers Care Splitting Machine Operator Helper Name Role Phone Unavailable Primary Care Provider Unavailabl e Prior Encounters Date Type Department Care Team Description 03/06/2019 Converted 13x Documents [facility] [address], [place] [address] <No scans attached> 03/06/2019 Converted 13x [facility] [address] [place] [address] <No scans attached> [...] 12:00 AM PST TOPICAL APPLICATION OF FLUORIDE EXCLUDING VARNISH Routine 04/08/2013 12:00 AM PST PROPHYLAXIS - CHILD Routine 04/08/2013 1 2:00 AM PST PERIODIC ORAL EVALUATION - ESTABLISHED PATIENT Routine 04/08/2013 12:00 AM PST TOPICAL APPLICATION OF FLUORIDE EXCLUDING VARNISH Routine 10/01/2012 12:00 AM PDT [...] 12:00 AM PST TOPICAL APPLICATION OF FLUORIDE EXCLUDING VARNISH Routine 09/14/2011 12:00 AM PDT [...]
--- OUTSIDE RECORDS SUMMARY | 2024-11-03 11:01 | XMS_ITS | Clinical Summary ---
Author Organization [facility] Health Address [address] [place] [address] Care Team Providers Care Field Hockey Coach Name Role Phone Unavailable Primary Care Provider [...]
== END 2024-11-03 10:49 | disposition home or self-care (01) ==
LOC: HO.HGS 10:26
PROVIDERS: PCP Physician Assistant; Visit Provider Surgery
DX: R79.89 Other specified abnormal findings of blood chemistry (principal); K82.4 Cholesterolosis of gallbladder
CPT/HCPCS: 99204

== ENCOUNTER 2024-11-08 08:40 | Outpatient (AMB) | payer BC, SELFPAY ==
--- NOTE | 2024-11-08 08:42 | MHC.OFFVIS ---
Vital Signs 11/08/24 09:01 Height 5 ft 2 in Weight 174 lb 6 oz BMI 31.9 BP 110/74 Blood Pressure Location Lt brachial Position Sitting Respiration 14 Pulse 72 Pulse Source Auscultation Intake Visit Reasons: med change Allergies ceftriaxone (From Rocephin) Allergy (Unknown, Verified 11/03/24 10:41) Hives Medication List - Last Reconciled 11/08/24 by Barb Cartagena PA-C biotin 800 mcg PO DAILY bupropion HCl XL (Wellbutrin XL) 150 mg PO QAM cetirizine (Zyrtec) 10 mg PO DAILY fluticasone propionate 50 mcg/actuation (Flonase Allergy Relief) 1 spray intranasal DAILY L.acidophil-L.plantar-Bifido 7 25 billion cell (up4 Probiotics Adult 50 Plus) caps PO magnesium 250 mg PO DAILY polyethylene glycol 3350 (Miralax) 17 grams PO DAILY venlafaxine ER (Effexor XR) 37.5 mg PO BEDTIME HPI HPI med change: Details: Patient is a 24-year-old female who presents today for a f/u. She has a hx of ALL, anxiety, depression and GERD. Psych: She states with her current regimen of the Wellbutrin and venlafaxine she is doing well. She is not having any side effects or headaches. She feels that her anxiety is significantly improved. 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 No breakthrough symptoms. -she tried sertraline, lexapro and gabapentin. Heme/onc: dx in 2006 and [facility] [place] [facility] She was successfully treated with chemo. She states she was discharged from heme/onc about 10 years ago. Neuro: She had an overall reassuring MRI. She has been referred to Neurology. GI: Currently improved with MiraLax and stool softeners. Has been referred to GI and seeing them 11/23. LFTs have normalized. We did do an abdominal ultrasound given the elevated LFTs and it did note gallbladder polyps. She did see General surgery who recommends repeat scan in 6 months. 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: [facility] Medical History Port-A-Cath in place Encounter for management and injection of depo-Provera Surgical History History of removal of Port-a-Cath Family History Mother FHx: mental illness Anxiety Bipolar 1 disorder Father OCD (obsessive compulsive disorder) ADHD Substance abuse Alcoholism Paternal Grandfather Bipolar 1 disorder Depression OCD (obsessive compulsive disorder) Substance abuse Alcoholism Paternal Uncle ADHD Substance abuse Alcoholism Social History Housing: Apartment Alcohol intake: current Patient Tobacco Use Status: Never used Tobacco e-Cigarette/Vaping Use: Never Used Second Hand Smoke Exposure: No Substance Use Type: Marijuana service: No Current occupational status: unemployed Cognitive needs: No Hearing needs: No Vision needs: No Female Reproductive History Menstrual Age of Menarche: 10 Physical Exam Const Orientation/consciousness: patient oriented x3 HEENT Ears: hearing grossly normal bilaterally Neck Thyroid: Thyroid normal Lymphatic: no lymphadenopathy noted Resp Auscultation: clear to auscultation bilaterally Cardio Rate: regular rate Rhythm: regular rhythm Heart sounds: S1 normal heart sound present and S2 normal heart sound present GI Inspection: Yes normal to inspection Palpation (GI): Soft to palpation and Other GI palpation findings present (nontender, no cva tenderness) Auscultation: normoactive bowel sounds Rectal Exam - Female: deferred Skin General skin exam: no rashes or lesions noted Neuro General: patient oriented x3, gait normal and no focal motor deficits Results Reviewed Results Reviewed: Laboratory Tests 09/18/24 12:25 WBC 5.8 RBC 4.45 Hgb 13.8 Hct 39.1 Plt Count 253 Sodium 138 Potassium 4.0 Chloride 109 H Carbon Dioxide 23 Anion Gap 10 L BUN 8 L Creatinine 0.67 Estimated GFR > 60 Random Glucose 93 Calcium 9.3 Total Bilirubin 0.5 Direct Bilirubin 0.2 AST 23 ALT 18 Alkaline Phosphatase 65 Total Protein 7.2 Albumin 4.5 Assessment & Plan Assessment & Plan (1) Major depression, recurrent: Code(s): F33.9 - Major depressive disorder, recurrent, unspecified Category: Medical Qualifiers: Active/Remission status: currently active Major depression episode severity: mild Qualified Code(s): F33.0 - Major depressive disorder, recurrent, mild Plan: Currently well-controlled. We will continue current regimen. We will follow up in 3 months. (2) Generalized anxiety disorder: Code(s): F41.1 - Generalized anxiety disorder Category: Medical Plan: As above (3) Gallbladder polyp: Code(s): K82.4 - Cholesterolosis of gallbladder Category: Medical Plan: Has repeat ultrasound ordered in 6 months. Medications: Refilled venlafaxine ER (Effexor XR) 37.5 mg PO BEDTIME 90 caps 3RF bupropion HCl XL (Wellbutrin XL) 150 mg PO QAM 90 tabs 1RF Coding Level of Care Code Est Pt Level 4 (67134) Complex EM visit Add On G2211 Diagnoses Mild episode of recurrent major depressive disorder F33.0 Active/Remission status: currently active Major depression episode severity: mild Generalized anxiety disorder F41.1 Gallbladder polyp K82.4
[2024-11-08 09:01] VITALS: BP 110/74; PULSE 72; RESP 14; BMI 31.9
--- OUTSIDE RECORDS SUMMARY | 2024-11-08 09:43 | XMS_ITS | Encounter Summary ---
Author Organization [facility] Health Address [address] [address] Care Team Providers Care Supervisor Painting Department Name Role Phone Unavailable Primary Care Provider [...]
--- OUTSIDE RECORDS SUMMARY | 2024-11-08 09:43 | XMS_ITS | Clinical Summary ---
Author Organization [facility] Health Address [address] [place] [address] Care Team Providers Care Senior Resident Care Director Name Role Phone Unavailable Primary Care [...]
== END 2024-11-08 08:51 | disposition home or self-care (01) ==
LOC: HO.HMCFM 08:40
PROVIDERS: PCP Physician Assistant; Visit Provider Physician Assistant
DX: F33.0 Major depressive disorder, recurrent, mild (principal); F41.1 Generalized anxiety disorder; K82.4 Cholesterolosis of gallbladder

== ENCOUNTER 2024-11-23 10:48 | Outpatient (AMB) | payer BC, SELFPAY ==
--- NOTE | 2024-11-23 10:51 | A.OFFVIS_ITS ---
Vital Signs 11/23/24 10:57 Height 5 ft 2 in Weight 165 lb BMI 30.2 BP 128/78 Blood Pressure Location Lt brachial Position Sitting Pulse 90 Pulse Source Pulse Oximeter Pulse Oximetry (%) 97 Oxygen Delivery Method Room Air Intake Visit Reasons: Constipation Intake Note: Patient new consult for Constipation Patient cc: C.O. hx of GERD (inactive, not currently tx'd), bloating, RLQ + LUQ pain intermittently, and constipation w/o evidence of hematochezia or melena. Gradual onset x3 years per pt. Mag + Miralax regimen does help with constipation but not bloating. Forensic Audit Expert Required: No Accompanied by: Self / Same As Patient Allergies ceftriaxone (From Rocephin) Allergy (Unknown, Verified 11/23/24 10:51) Hives Medication List - Last Reconciled 11/23/24 by Lucero Goodman CNP biotin 800 mcg PO DAILY bupropion HCl XL (Wellbutrin XL) 150 mg PO QAM cetirizine (Zyrtec) 10 mg PO DAILY fluticasone propionate 50 mcg/actuation (Flonase Allergy Relief) 1 spray intranasal DAILY L.acidophil-L.plantar-Bifido 7 25 billion cell (up4 Probiotics Adult 50 Plus) caps PO magnesium 250 mg PO DAILY polyethylene glycol 3350 (Miralax) 17 grams PO DAILY venlafaxine ER (Effexor XR) 37.5 mg PO BEDTIME HPI HPI Constipation: Details: Patient is a 24-year-old female with PMH of depression, anxiety, headaches. Referred by PCP for further evaluation of constipation Sarah reports gradually worsened over the past three years following a relocation from [place] to [place], potentially associated with increased stress. Initially, bowel movements decreased to once per week, with associated lower abdominal pain and bloating. Over six months, symptoms increased in frequency, prompting use of magnesium citrate and, intermittently, enemas. For the past six months, daily Miralax has resulted in regular once-daily bowel movements with easier passage of stool, although occasional bloating and intermittent lower right (and sometimes upper left) abdominal discomfort persist, particularly with missed bowel movements or dietary triggers (notably overeating). Pain is relieved by defecation. Bloating and pain exacerbate appetite suppression during periods of constipation. Occasional mild heartburn (approx. once weekly), attributable to a history of GERD since , is managed effectively with [id number] antacids as needed. Weight fluctuations have been observed, partly attributed to variable clinic measurements, a new job with increased mobility, and medication adjustments; home weights are generally stable between 164?167 lbs. Relevant comorbidities include remote childhood ALL, treated with chemotherapy, currently in remission, and a gallbladder polyp under surveillance by general surgery with planned repeat ultrasound. No current dysphagia, regurgitation, or red flag GI symptoms. No history of abdominal surgery. No anemia or electrolyte abnormalities on prior labs; thyroid function previously normal. Family history is notable for maternal bowel malrotation and partial cecal resection. Patient denies: fever/chills, n/v, appetite changes, regurgitation,dysphasia, unintentional wt loss or melena/hematochezia. Social hx: -ETOH use, 1-2 drinks approx 1xweek -marijuana edibles (gummies 5 mg) 2?3x/week, denies other recreational drug use -non-smoker - family hx as below -denies significant cardiopulmonary history -tolerated anesthesia in the past without difficulty. [facility] Medical History (Updated 11/23/24 @ 11:45 by Lucero Goodman CNP) ALL (acute lymphoblastic leukemia) Change in stool Port-A-Cath in place Encounter for management and injection of depo-Provera Surgical History History of removal of Port-a-Cath Family History (Updated 11/23/24 @ 11:37 by Lucero Goodman CNP) Mother FHx: mental illness Anxiety Bipolar 1 disorder Deficient knowledge of surgical removal of colon Father OCD (obsessive compulsive disorder) ADHD Substance abuse Alcoholism Paternal Grandfather Bipolar 1 disorder Depression OCD (obsessive compulsive disorder) Substance abuse Alcoholism Paternal Uncle ADHD Substance abuse Alcoholism Social History Housing: Apartment Alcohol intake: current Patient Tobacco Use Status: Never used Tobacco e-Cigarette/Vaping Use: Never Used Second Hand Smoke Exposure: No Substance Use Type: Marijuana service: No Current occupational status: unemployed Cognitive needs: No Hearing needs: No Vision needs: No Female Reproductive History Menstrual Age of Menarche: 10 Review of Systems Const Reports as per HPI ENT Reports as per HPI Card Reports as per HPI Resp Reports as per HPI GI Reports as per HPI Reports as per HPI Physical Exam Vital Signs: Last Vital Signs Pulse 90 11/23/24 10:57 BP 128/78 11/23/24 10:57 Pulse Ox 97 11/23/24 10:57 Oxygen Delivery Method Room Air 11/23/24 10:57 BMI result Body Mass Index 30.2 Const General: healthy appearing, no acute distress and well developed Nutritional Appearance: average body habitus Orientation/consciousness: patient oriented x3 HEENT Head: Yes normal to inspection, Yes normocephalic and Yes atraumatic Face and sinus: Yes normal facial exam Eyes General: appearance normal, both eyes and all related structures Neck Neck: Yes normal visual inspection Resp Effort & Inspection: normal respiratory effort, able to speak in complete sentences, no tracheal deviation and symmetric chest movement Cardio Jugular venous distension: no JVD GI Inspection: Yes normal to inspection and Yes distended Palpation (GI): Soft to palpation, not firm, nontender, no guarding and No hepatosplenomegaly present Auscultation: normal bowel sounds Neuro General: patient oriented x3 Gait exam (Neuro): Normal gait present Psych Appearance: grossly normal Mental Status: mental status grossly normal Speech and movement: Normal speech and movement present Affect: normal affect Attitude: cooperative Thought process: Normal thought process present Thought content: Normal thought content present Insight: Good insight present (Psych) Judgement: Good judgement present (Psych) Assessment & Plan Assessment & Plan (1) Change in stool: Code(s): R19.5 - Other fecal abnormalities Category: Medical Plan: Chronic constipation onset after relocation, exacerbated by stress, dietary triggers noted; current effective management with osmotic laxative; improvement with return to daily activity. Intermittent pain and bloating temporally associated with stooling pattern; no alarming features; pain relieved after BMs. Additional Testing: - Abdominopelvic CT (with contrast) ordered, insurance pending?justified by remote ALL hx and change in bowel habits. Patient educated that imaging is indicated in the context of a history of childhood leukemia and new or changed bowel symptoms, as this increases the need to rule out structural or neoplastic causes. Imaging is not routinely indicated for chronic constipation in the absence of red flag symptoms (e.g., GI bleeding, significant unintentional weight loss, persistent vomiting, failure to pass gas, severe pain, or abnormal exam/labs), but is considered here due to oncologic history and change in pattern. - Repeat labs (renal function) done within [address] Medication Management: Continue current regimen: Miralax daily, magnesium citrate qhs; continue other home meds as prescribed; [id number] Tums prn for heartburn Lifestyle Recommendations: - Continue gradual increases in dietary fiber as tolerated - Continue trial of low FODMAP diet for symptom optimization - Maintain regular physical activity (work/job on feet sufficient at present) - Hydration emphasized - Avoid dietary triggers and overeating when possible Follow-Up: - Schedule in-office FU after CT abdomen/pelvis, or sooner with new or worsening symptoms - Immediate report of red flag symptoms: GI bleeding, significant unintentional weight loss (>5% over 6?12 mo), persistent N/V, new-onset severe pain, failure to pass gas, fever (2) GERD (gastroesophageal reflux disease): Code(s): K21.9 - Gastro-esophageal reflux disease without esophagitis Category: Medical Qualifiers: Esophagitis presence: esophagitis presence not specified Qualified Code(s): K21.9 - Gastro-esophageal reflux disease without esophagitis Plan: Lifelong hx, infrequent current symptoms responsive to antacids; no dysphagia, odynophagia, or weight loss. Additional Testing: None indicated at present Medication Management: Continue antacid prn; no daily therapy needed Lifestyle Recommendations: Continue to avoid known reflux triggers; maintain current habits Follow-Up: Routine; sooner if symptoms worsen or develop alarm features (3) ALL (acute lymphoblastic leukemia): Comment: Dx age 6, s/p chemo Code(s): C91.00 - Acute lymphoblastic leukemia not having achieved remission Category: Medical Qualifiers: Leukemia Active/Remission status: in remission Qualified Code(s): C91.01 - Acute lymphoblastic leukemia, in remission Plan: Hx of ALL in childhood, no ongoing therapy, no recurrence; relevant for GI evaluation context Additional Testing: N/A Medication Management: As above Lifestyle Recommendations: As above Follow-Up: Monitor per oncologist/primary as indicated (4) Gallbladder polyp: Code(s): K82.4 - Cholesterolosis of gallbladder Category: Medical Plan: Polyp identified, already in surgical follow-up, US planned in 6 months Additional Testing: Await scheduled repeat RUQ US Medication Management: None currently Lifestyle Recommendations: None specific Follow-Up: As per surgical team Plan Follow-up after CT or sooner as needed Time: I spent a total of 35 minutes on the date of encounter which includes: Preparing to see the patient (reviewed previous documentation, test results and medical history) Performing a medically appropriate exam and/or evaluation Ordering medications, tests, and procedures Documenting clinical information in the health record Orders: Orders CT abdomen pelvis w IV con Today R19.5 - Other fecal abnormalities, Z85.9 - Personal history of malignant neoplasm, unspecified Basic Metabolic Panel Today R19.5 - Other fecal abnormalities Coding Level of Care Code New Pt New Pt Level 3 (02253) Patient Type New Diagnoses Change in stool R19.5 Gastroesophageal reflux disease, unspecified whether esophagitis present K21.9 Esophagitis presence: esophagitis presence not specified Acute lymphoblastic leukemia (ALL) in remission C91.01 Leukemia Active/Remission status: in remission Gallbladder polyp K82.4
[2024-11-23 10:57] VITALS: BP 128/78; PULSE 90; O2SAT 97; BMI 30.2
== END 2024-11-23 11:48 | disposition home or self-care (01) ==
LOC: HO.HGI 10:49
PROVIDERS: PCP Physician Assistant; Visit Provider Nurse Practitioner Family
DX: R19.5 Other fecal abnormalities (principal); K21.9 Gastro-esophageal reflux disease without esophagitis; C91.01 Acute lymphoblastic leukemia, in remission; K82.4 Cholesterolosis of gallbladder
CPT/HCPCS: 99203

== ENCOUNTER 2024-12-27 09:28 | Outpatient (REF) | payer BC, SELFPAY ==
[2024-12-28 03:14] LABS: Bacterial Vaginosis PCR NEGATIVE (Negative); Candida Group PCR NOT DETECTED (Not Detect); Candida glab krusei PCR NOT DETECTED (Not Detect); Trichomonas vaginalis PCR NOT DETECTED (Not Detect)
[2024-12-28 03:45] LABS: CT PCR NOT DETECTED (Not Detect.); NG PCR NOT DETECTED (Not Detect.)
== END 2024-12-27 09:29 | disposition home or self-care (01) ==
LOC: HO.LAB 09:28
PROVIDERS: PCP Physician Assistant; Visit Provider Advanced Practice Midwife
DX: Z20.2 Contact with and (suspected) exposure to infections with a predominantly sexual mode of transmission (principal); Z91.89 Other specified personal risk factors, not elsewhere classified; Z87.42 Personal history of other diseases of the female genital tract
CPT/HCPCS: 81515; 87491; 87591

== ENCOUNTER 2024-12-27 09:28 | Outpatient (AMB) | payer BC, SELFPAY ==
--- NOTE | 2024-12-27 09:32 | MHC.OFFVIS ---
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 Feeder Offbearer: Bindery Machine Feeder Offbearer Present (Yadira) Accompanied by: Self / Same As Patient Allergies ceftriaxone (From Rocephin) Allergy (Unknown, Verified 12/27/24 09:41) Hives Medication List - Last Reconciled 12/27/24 by Sintia Mcgill CNM biotin 800 mcg PO DAILY bupropion HCl XL (Wellbutrin XL) 150 mg PO QAM cetirizine (Zyrtec) 10 mg PO DAILY fluticasone propionate 50 mcg/actuation (Flonase Allergy Relief) 1 spray intranasal DAILY L.acidophil-L.plantar-Bifido 7 25 billion cell (up4 Probiotics Adult 50 Plus) caps PO magnesium 250 mg PO DAILY polyethylene glycol 3350 (Miralax) 17 grams PO DAILY venlafaxine ER (Effexor XR) 37.5 mg PO BEDTIME Is last menstrual period known: Yes Last menstrual period: 12/22/24 Post menopausal: No Patient : No HPI HPI 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 Last year when she was here we discussed her past medical history with her cancer and her question about future fertility but this year some things have changed. She did not like how she felt on the Depo-Provera so she decided to go off of it. She is using condoms and she is not having sex that often. She and her partner have discussed it and neither of them want to bring more children into the world who are not already here and wanted so if they decide to have a child they would want to adopt and so he is planning to get a vasectomy at the beginning of the year. She is also working on adjusting meds for mental health and is working with her primary care provider on the and reports things as okay right now. She is trying to eat well and take care of herself and is very active in her job going up and downstairs all day long. She is getting regular menses and also notes the cyclic changes that go on in her body throughout her cycle. As far as the ?abnormal Pap that she had at age 19. She recalls that she did not get told anything else about it other than that and at the time she also had a urinary tract infection and yeast infection. So she does not know if the Pap just said inflammation or something like that it was done at her college clinic and she is going to try and get records of the actual Pap itself so the she is not tested unnecessarily. Her last Pap with us was negative so she would not ordinarily need a Pap this year. She is open to STI testing both at the visit and with lab work. [facility] Medical History ALL (acute lymphoblastic leukemia) Change in stool Port-A-Cath in place Encounter for management and injection of depo-Provera Surgical History History of removal of Port-a-Cath Family History Mother FHx: mental illness Anxiety Bipolar 1 disorder Deficient knowledge of surgical removal of colon Father OCD (obsessive compulsive disorder) ADHD Substance abuse Alcoholism Paternal Grandfather Bipolar 1 disorder Depression OCD (obsessive compulsive disorder) Substance abuse Alcoholism Paternal Uncle ADHD Substance abuse Alcoholism Social History Housing: Apartment Alcohol intake: current Patient Tobacco Use Status: Never used Tobacco e-Cigarette/Vaping Use: Never Used Second Hand Smoke Exposure: No Substance Use Type: Marijuana service: No Current occupational status: unemployed Cognitive needs: No Hearing needs: No Vision needs: No Female Reproductive History Menstrual Age of Menarche: 10 Duration of menses: 6-7 days Date of last menstrual period: 12/22/24 control method: none Total pregnancies: 0 Date of last pap smear: 12/27/23 (negative pap smear, negative hpv ) History of abnormal pap smear: Yes Physical Exam Vital Signs: Last Vital Signs BP 114/78 12/27/24 09:46 BMI result Body Mass Index 30.7 Const General: healthy appearing, comfortable, no acute distress, well developed and alert Nutritional Appearance: average body habitus Orientation/consciousness: patient oriented x3 Limitations: no limitations HEENT Head: Yes normocephalic Neck Neck: Yes normal visual inspection Chest Chest palpation & inspection: normal inspection of the chest Breast/axilla inspection: normal inspection of the breasts and normal inspection of the axillae Breast/axilla palpation: normal palpation of the breasts and normal palpation of the axillae Resp Effort & Inspection: normal respiratory effort GI Inspection: Yes normal to inspection, No Abdominal wall edema and No distended Palpation (GI): Soft to palpation and nontender Other: External exam within normal limits vagina is pink and moist cervix pink nulliparous smooth end of menses evident. Uterus midposition mobile nontender adnexa nontender good tone with Kegel. General: Yes bladder normal to palpation External Female Exam: normal external appearance and normal appearance of the urethra Speculum Exam - Vagina: normal appearance of the vagina, normal palpation and normal vaginal discharge Speculum Exam - Cervix: normal appearance of the cervix, normal palpation and nontender Bimanual exam- vagina & uterus: normal bimanual exam, normal palpation, uterine size normal, bladder normal to palpation, consistency normal, normal palpation, uterine mobility normal, uterine shape normal, No Cervical tenderness present, non-tender and no cervical motion tenderness Bimanual Exam- Adnexa, other: normal adnexae, no masses, normal and No adnexal tenderness Neuro General: patient oriented x3 Assessment & Plan Assessment & Plan (1) Hx of abnormal cervical Pap smear: Comment: 12/24/2023 Pap is negative with negative HPV.; 12/27/2024 explore this history further, unclear how question abnormal her Pap at college at age 19 was... She will try to get records. Code(s): Z87.42 - Personal history of other diseases of the female genital tract Category: Medical (2) At risk for fertility problems: Comment: Currently using condoms and partner plans vasectomy discussed her regular cycles if fertility was a future question she may wish to seek expert fertility care. Code(s): Z91.89 - Other specified personal risk factors, not elsewhere classified Category: Medical (3) Screen for sexually transmitted diseases: Code(s): Z11.3 - Encounter for screening for infections with a predominantly sexual mode of transmission Category: Medical Plan -----Discussed in this visit the following: healthy balanced diet, regular and consistent exercise, getting recommended health screens, doing the best she can for her particular health concerns, kegel exercises, pap smear screening and followup recommendations, mammography screening and SBE, normal changes in cycles in her life stage--- . Discussed her past history of the questionable abnormal Pap it is unclear how ?abnormal it was perhaps it was just inflamed because of her concurrent yeast infection at age 19 at college. I asked her to try and get records her Pap smear was normal last year and we do not want to do extra unnecessary tests. Discussed her and her partner's decision to not have biological children together. If she should ever change her mind she might want to seek expert fertility care though from her own personal history, while I can not speak to any egg reserve she has the fact that she is getting normal cycles is a good sign. She feels better being off the Depo-Provera and he is going to be getting a vasectomy and they are using condoms until then.. She is working on her mental health and self-care and there were some labs she may need to do for her primary care provider as well and she can get them all done together. RTC 1 year. note for work given Orders: Orders Hepatitis B Surface Antigen Today Z11.3 - Encounter for screening for infections with a predominantly sexual mode of transmission, Z87.42 - Personal history of other diseases of the female genital tract, Z91.89 - Other specified personal risk factors, not elsewhere classified Hepatitis C Antibody Today Z11.3 - Encounter for screening for infections with a predominantly sexual mode of transmission, Z87.42 - Personal history of other diseases of the female genital tract, Z91.89 - Other specified personal risk factors, not elsewhere classified Syphilis Screen Today Z11.3 - Encounter for screening for infections with a predominantly sexual mode of transmission, Z87.42 - Personal history of other diseases of the female genital tract, Z91.89 - Other specified personal risk factors, not elsewhere classified HIV Ab/Ag Today Z11.3 - Encounter for screening for infections with a predominantly sexual mode of transmission, Z87.42 - Personal history of other diseases of the female genital tract, Z91.89 - Other specified personal risk factors, not elsewhere classified Coding Level of Care Code Est Pt Prev Care [id number]([id number]) Diagnoses Hx of abnormal cervical Pap smear Z87.42 At risk for fertility problems Z91.89 Screen for sexually transmitted diseases Z11.3
[2024-12-27 09:46] VITALS: BP 114/78; BMI 30.7
--- OUTSIDE RECORDS SUMMARY | 2024-12-27 10:27 | XMS_ITS | Encounter Summary ---
Author Organization [facility] Health Address [address] [address] [address] Care Team Providers Care Heater Installer Name Role Phone Unavailable Primary Care Provider [...] [facility] [address] [place] [id number] <No scans attached> Plan of [...]
--- OUTSIDE RECORDS SUMMARY | 2024-12-27 10:27 | XMS_ITS | Clinical Summary ---
Author Organization [facility] Health Address [address] [address] [place] [address] Care Team Providers Care Global Compensation Director Name Role Phone Unavailable Primary Care [...]
== END 2024-12-27 13:31 | disposition home or self-care (01) ==
LOC: HO.HWSM 09:28
PROVIDERS: PCP Physician Assistant; Visit Provider Advanced Practice Midwife
DX: Z01.419 Encounter for gynecological examination (general) (routine) without abnormal findings (principal); Z87.42 Personal history of other diseases of the female genital tract; Z91.89 Other specified personal risk factors, not elsewhere classified; Z11.3 Encounter for screening for infections with a predominantly sexual mode of transmission
CPT/HCPCS: 99395; 99459

== ENCOUNTER 2025-02-01 08:19 | Outpatient (AMB) | payer BC, SELFPAY ==
[2025-02-01 08:23] VITALS: BP 100/74; PULSE 89; O2SAT 98; BMI 31.1
--- NOTE | 2025-02-01 08:23 | A.OFFVIS_ITS ---
Vital Signs 02/01/25 08:23 Height 5 ft 2 in Weight 170 lb BMI 31.1 BP 100/74 Blood Pressure Location Rt brachial Position Sitting Pulse 89 Pulse Source Pulse Oximeter Pulse Oximetry (%) 98 Oxygen Delivery Method Room Air Intake Visit Reasons: INP - New Daily Persisting Headache Director Of Nursing Required: No Accompanied by: Self / Same As Patient Allergies ceftriaxone (From Rocephin) Allergy (Unknown, Verified 02/01/25 08:29) Hives Medication List - Last Reconciled 02/01/25 by ECHO Conn barium sulfate 2%(w/v) (Readi-Cat 2) 2 hours before your appointment drink the 1st Bottle (450 ml) of the READI-CAT 2, 1 hour before your appointment drink the 2nd bottle (450 ml) of the READI-CAT 2 biotin 800 mcg PO DAILY bupropion HCl XL (Wellbutrin XL) 150 mg PO QAM cetirizine (Zyrtec) 10 mg PO DAILY fluticasone propionate 50 mcg/actuation (Flonase Allergy Relief) 1 spray intranasal DAILY L.acidophil-L.plantar-Bifido 7 25 billion cell (up4 Probiotics Adult 50 Plus) caps PO magnesium 250 mg PO DAILY multivitamin with iron PO polyethylene glycol 3350 (Miralax) 17 grams PO DAILY venlafaxine ER (Effexor XR) 37.5 mg PO BEDTIME HPI Comments Details: Left handed 24-yr-old female presents for new patient evaluation of headache disorder. PMH is notable for: Acute lymphocytic leukemia (diagnosed at age 6, currently in remission), infantile colic, childhood onset motion sickness, anxiety and depression, gallbladder polyp, constipation. Pt reports she has always had migraine, but these increased after she took 1 dose of depo-provera in Dec 2023. She started Depo-Provera in Dec 2023, which triggered an uptick in her migraine headaches, irritability, increased appetite, and weight fluctuations (initial quick weight gain- up by 20 lbs in about 1 month). At this time, she was also undergoing psychiatric med changes. Denies vision changes at that time. Her last eye exam was in 2016 PMH and ROS are notable for:? - Neurological: Reports headaches as detailed in HPI. Reports lightheadedness with intense migraines and difficulty thinking. Denies aura, visual changes, numbness, tingling, or seizures. - Eyes: Reports light sensitivity with headaches. Denies generalized vision changes, but has not had an eye exam since 2017. - ENMT: Reports occasional nasal congestion with headaches. Denies watery eyes, runny nose, or jaw pain. Notes that ponytails can be uncomfortable and sometimes cause a headache. - GI: Reports being prone to GI upset, constipation. Denies nausea or vomiting with headaches. - Musculoskeletal: Denies neck pain or leg cramps at night. Reports occasional back pain related to posture. - Psychiatric: Reports history of anxiety and depression- managed by her PCP. Reports past irritability on Depo-Provera. - Constitutional: Denies daytime sleepiness. Reports past increased hunger on Depo-Provera. 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 * Typical fluid intake per day: not enough * Caffeine use: 1-2 cups of coffee per day, usually in the morning * Sleep routine: Usual bedtime: 11pm-12am and wake-up time: varies- [id number]-[id number]-9am-10am- depending on work schedule * Sleep difficulties: Difficulty falling asleep and staying asleep, occasional snoring, fatigue, tosses and turns, light sleeper, probably has bruxism - wears a retainer at night- denies daytime sleepiness, jaw pain or nocturnal leg cramps. * Substance use: Occasional THC gummies- may help or worsen headache, Alcohol- 1-2 drinks per week. 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 Family planning: not on OCP, using protection. Headache questionnaire * Types of headache disorders: 1 * Age/time of onset: 6 yrs old, but worse in the last year * Preceding causes: was diagnosed w/ ALL at age 6 as well- went into remission w/in 1 month of diagnosis, did chemo x's 2.5 yrs (chemo August 2006-Nov 2008) * Family history of headache disorder: mother- seems more severe, cousins * Previous work-up: * MRI, brain w/o contrast: July 2024, unremarkable, 10 mm left sinus cyst * Previous neurological care: None * Eye care provider: None- last eye exam was in 2017- at that time 20/20 w/ slight astigmatism * Dentist: None Typical headache characteristics * Duration of each headache attack: 4-24 hours, but in the last year may last 1- 2 days * Frequency of this attack: 4-8 attacks per month * Time of day this headache usually occurs: No specific circadian pattern * Time of year or season this headache usually occurs: No specific circannual pattern * Prodrome symptoms: Denies * Aura: Denies * Pain intensity: [id number]-[id number]-[id number] * Location, quality, characteristics: Usually right sided or mid-frontal starts as a light pressure and builds to a throbbing pain, sometimes a sharp pain the right yazidi (rarely in the left yazidi), sometimes retro-orbital pressure * Associated symptoms: photophobia, phonophobia, osmophobia, ponytail allodynia, lightheadedness- if more severe, fatigue, cognitive difficulties, activity intolerance- would want to sit down * Atypical associated symptoms: Sometimes a/w w/ left or bilateral na res/maxillary congestion * Postdrome: Denies * Aggravating factors during this headache: laying down can aggravate the headache- this has always occurred w/ her migraine, lights, sounds, alcohol * Alleviating factors during this headache: sitting up, hot or cold compress- and see below * Triggers that provoke this headache: artificial coconut, very strong smells, too much or too little caffeine, hunger, dehydration, stress, air travel or increased altitudes- especially if the passenger when driving up a mountain road. * Headache impact on your quality of life: Has had to miss work due to the migraine. Current treatment strategies * Current acute medication use/interventions: Ibuprofen 400mg or Tylenol ES 1000mg or Excedrin Migraine 2 tabs. Takes 1 of these, and if ineffective with repeat with a different one in 4 hours. * Current preventative medication use: Buproprion 150mg, Venlafaxine ER 37.5mg QHS- headcahes have improved some since starting this- and well-tolerated. OTC Mag 250mg- uses for GI health. * Current non-pharmacological interventions: sitting up, hot or cold compress [facility] Medical History (Updated 02/18/25 @ 20:59 by Grace Chapa, LOG HANDLING EQUIPMENT OPERATOR) New daily persistent headache ALL (acute lymphoblastic leukemia) Change in stool Port-A-Cath in place Encounter for management and injection of depo-Provera Surgical History History of removal of Port-a-Cath Family History Mother FHx: mental illness Anxiety Bipolar 1 disorder Deficient knowledge of surgical removal of colon Father OCD (obsessive compulsive disorder) ADHD Substance abuse Alcoholism Paternal Grandfather Bipolar 1 disorder Depression OCD (obsessive compulsive disorder) Substance abuse Alcoholism Paternal Uncle ADHD Substance abuse Alcoholism Social History Housing: Apartment Alcohol intake: current Patient Tobacco Use Status: Never used Tobacco e-Cigarette/Vaping Use: Never Used Second Hand Smoke Exposure: No Substance Use Type: Marijuana service: No Current occupational status: unemployed Cognitive needs: No Hearing needs: No Vision needs: No Female Reproductive History Menstrual Age of Menarche: 10 Physical Exam Exam Exam: Alert and Oriented x's 3 Normal respiratory effort, Able to speak full sentences without dyspnea EOM:intact PEARLA Scalp palpation: non-tender Cranial Nerves II-XII intact Cervical ROM: full Left Spurling: normal Right Spurling: normal DTRs: 2+ throughout Gait: normal Tandem: intact Romberg: intact Finger-Nose: intact Muscle strength: 5/5 throughout Bilateral facial, upper extremity, and lower extremity sensation: grossly intact Vital Signs: Last Vital Signs Pulse 89 02/01/25 08:23 BP 100/74 02/01/25 08:23 Pulse Ox 98 02/01/25 08:23 Oxygen Delivery Method Room Air 02/01/25 08:23 BMI result Body Mass Index 31.1 Assessment & Plan Assessment & Plan (1) Chronic migraine without aura without status migrainosus, not intractable: Code(s): G43.709 - Chronic migraine without aura, not intractable, without status migrainosus Category: Medical (2) Positional headache: Code(s): R51.0 - Headache with orthostatic component, not elsewhere classified Category: Medical Plan Discussion note I discussed my concern for a secondary headache disorder, specifically a high- pressure headache, given the patient's report of rapid weight gain after starting Depo-Provera and the positional nature of her headaches (worsening when lying down). I explained that while her brain MRI was reassuring, it was done without contrast, and an important step to rule out a high-pressure headache having effect on her vision is with a comprehensive eye exam to look for signs of pressure on the optic nerve. I will place a referral to ophthalmology for this evaluation. I reviewed the three-pronged approach to migraine management: lifestyle modifications (good self-care), acute/abortive treatment for when a headache starts, and preventative treatment. I explained the risk of medication-overuse headaches from frequent use of ixjh-mgq-ricmgra medications like Excedrin. For preventative care, we will optimize her magnesium dose to 400-500 mg and start vitamin B2 (riboflavin) 400 mg daily. For acute treatment, I will prescribe sumatriptan and instructed her to take it at the very first sign of a headache, explaining potential side effects such as tingling or palpitations. I also discussed non-pharmacological aids, including green light bulbs and Loop earplugs for light and sound sensitivity. We will plan for a follow-up visit in approximately 3-6 months to assess her response to treatment. Patient was informed and verbally consented to the use of an ambient scribe for clinic note documentation during this visit. You are advised to undergo the following: Comprehensive eye exam Headache Management Tips Combining good self-care with some helpful tools can make managing headaches much easier. Healthy Habits * Eat a balanced diet * Drink enough water throughout the day, typically at least 64 oz of fluid per day * Get regular, adequate sleep consisting of 7-9 hours of sleep per night * Stay active with routine physical activity, typically at least 30 minutes 5 days per week * Stay connected with friends and family, enjoy meaningful activities, and take care of your mood Tracking Your Headaches * Write down when headaches happen, what helps, and any side effects of new treatments * There are several options to help you, such as: * Apps such as Migraine Eleazar * A simple paper calendar or paper migraine tracker Non-Medication Strategies * Light sensitivity: special glasses may help (blue-light or FL-41 filters, green lenses) or green-light therapy * Avoid wearing dark sunglasses indoors * Sound sensitivity: noise-canceling earplugs can reduce bothersome noise * Neuromodulation devices: certain medical devices can be used alone or with medications to lower headache frequency and severity These strategies may not stop every attack, but over time, they can reduce headache frequency, intensity, and impact. For acute (as needed) headache treatment: It is important to take acute medications at the first sign of headache. However, please be aware that frequently using most acute medications may increase the frequency of your headache attacks, as well as make your other treatments less effective. * Trial Sumatriptan 100mg tab, 1/2 - 1 tab (50-100mg) at onset of headache, may repeat in 2 hours. Max of 2 tabs (200mg) per 24 hours. * May take sumatriptan with OTC Tylenol 650-1,000mg every 4-6 hours, Ibuprofen (liquid gels) 600mg every 6 hours, or Naproxen (liquid gels) 440mg q 12 hrs prn. * Potential adverse effects of triptans, include but are not limited to nausea, fatigue, chest tightness/tingling (usually passes within a few minutes), medication overuse headaches. Previous acute migraine medication trials: None other than OTC analgesics Acute migraine medication contraindications: None at this time For headache prevention medication: Preventative medications should be taken routinely as prescribed for best effect, it may take several weeks for full effect to take effect. * Start Riboflavin 400mg daily in the morning * This is generally well tolerated, however some people may experience mild abdominal discomfort from use. * This will cause your urine to become bright yellow or orange, which is expected and not of any concern. * Increase Magnesium to 400-500mg daily at bedtime * Magnesium comes in many subtypes, such as magnesium oxide, glycinate, citrate, and even try magnesium combinations. Additionally magnesium comes in many forms, including tablets, capsules, powders or even liquid formul ations. There is not a specific magnesium subtype or form known to be significantly more effective than another. Rather, the magnesium subtype inform that you best tolerate, is the best version for you. * Possible side effects of magnesium include, but are not limited to, GI upset, abdominal cramping, loose stools, and diarrhea Continue venlafaxine ER 37.5 mg daily-ordered by PCP for management of mood Previous migraine prevention medication trials: None other Migraine prevention medication contraindications: None at this time Case discussed with Dr Ita Hernandez. We will follow-up upon review of above and with a follow-up clinic visit in 3-6 months or sooner as needed. Orders: Referrals Ophthalmology Referral G43.109 - Migraine with aura, not intractable, without status migrainosus, R51.0 - Headache with orthostatic component, not elsewhere classified, R63.5 - Abnormal weight gain Medications: New riboflavin (vitamin B2) 400 mg PO DAILY 90 tabs 3RF 90 days sumatriptan succinate 50 - 100 mg orally at onset of headache, may repeat in 2 hrs PRN; max 2 tabs per day or 4 tabs/week (may take with Ibuprofen) 12 tabs 6RF migraine headache 30 days Coding Level of Care Code New Pt Level 4 (14885) Diagnoses Chronic migraine without aura without status migrainosus, not intractable G43.709 Positional headache R51.0
--- OUTSIDE RECORDS SUMMARY | 2025-02-01 08:36 | XMS_ITS | Encounter Summary ---
Author Organization [facility] Health Address [address] [address] [address] Care Team Providers Care Chief Technician X Ray Name Role Phone Unavailable Primary Care Provider Unavailabl e Prior Encounters Date Type Department Care Team Description 03/06/2019 Converted 13x [facility] [address], [place] [address] <No scans [...]
--- OUTSIDE RECORDS SUMMARY | 2025-02-01 08:36 | XMS_ITS | Clinical Summary ---
Author Organization [facility] Health Address [address] [address] [facility] [place] [address] Care Team Providers Care Street Light Repairer Helper Name Role Phone Unavailable Primary Care [...]
== END 2025-02-01 10:01 | disposition home or self-care (01) ==
LOC: HO.HSMS 08:20
PROVIDERS: PCP Physician Assistant; Visit Provider Nurse Practitioner Family
DX: G43.709 Chronic migraine without aura, not intractable, without status migrainosus (principal); R51.0 Headache with orthostatic component, not elsewhere classified
CPT/HCPCS: 99204

== ENCOUNTER 2025-02-01 13:16 | Outpatient (REF) | payer BC, SELFPAY ==
--- NOTE | ~2025-02-01 | CT_ITS ---
EXAMINATION: CT ABDOMEN PELVIS WITH IV CONTRAST HISTORY: R19.5 - Other fecal abnormalities COMPARISON: Correlation is made with an abdominal ultrasound dated 09/25/2024. TECHNIQUE: CT scan of the abdomen and pelvis was performed following administration of 85 mL Omnipaque 350 using standard departmental protocol. Coronal and sagittal reformatted images were generated and reviewed. The patient received oral contrast material. This CT exam was performed with one or more of the following dose reduction techniques: automated exposure control, adjustment of the mA and/or kV according to patient size, use of iterative reconstruction technique. DLP: 468 mGy-cm FINDINGS: LOWER CHEST: The visualized lung bases are clear. There is no pleural effusion. CARDIOVASCULATURE: The heart is normal in size. There is no pericardial effusion. LIVER: The liver is normal in size and contour. No liver mass is identified. The hepatic and portal veins are patent. GALLBLADDER / BILE DUCTS: The gallbladder is unremarkable. There is no intra or extrahepatic biliary ductal dilatation. SPLEEN: The spleen is normal in size. No focal splenic lesion is identified. PANCREAS: The pancreas is unremarkable in appearance. ADRENAL GLANDS: Within normal limits. KIDNEYS/RETROPERITONEUM: No renal calculi are identified. There is no hydronephrosis. No renal masses are identified. LYMPH NODES: No abdominal or pelvic lymphadenopathy. VASCULATURE: The abdominal aorta is normal in caliber. MESENTERY/PERITONEUM: No free fluid. No masses. There is no free intraperitoneal gas. STOMACH: The stomach is unremarkable. SMALL BOWEL: The small bowel is normal in caliber. COLON: The colon is unremarkable. APPENDIX: The appendix is not seen, however no inflammatory changes are seen adjacent to the cecum. URINARY BLADDER/PELVIC ORGANS: The urinary bladder is unremarkable. There is a 1.9 cm fundal fibroid. BONES / SOFT TISSUES: No suspicious bony or soft tissue abnormalities. CT/CT abdomen pelvis w IV con IMPRESSION: 1.9 cm fundal fibroid. Otherwise unremarkable contrast-enhanced CT of the abdomen and pelvis. Electronically signed by: Pedro Pablo Miranda MD 02/01/2025 03:46 PM EST
[2025-02-01] MEDS: iohexoL 350 MG/ML 100 ML INFUS..BTL IV (15:38)
[2025-02-01] MEDS: Barium Sulfate Oral (Vanilla) 450 ML ORAL.SUSP 900 ML PO (15:39)
--- OUTSIDE RECORDS SUMMARY | 2025-02-01 17:20 | XMS_ITS | Clinical Summary ---
Author Organization [facility] Health Address [address] [address] [facility] [place] [address] Care Team Providers Care Mri Technician Name Role Phone Unavailable Primary Care Provider [...]
--- OUTSIDE RECORDS SUMMARY | 2025-02-01 17:20 | XMS_ITS | Encounter Summary ---
Author Organization [facility] Health Address [address] [address] Care Team Providers Care Visitor Services Coordinator Name Role Phone Unavailable Primary Care Provider [...]
== END 2025-02-01 13:17 | disposition home or self-care (01) ==
LOC: HO.CT 13:16
PROVIDERS: PCP Physician Assistant; Visit Provider Nurse Practitioner Family
DX: G43.E09 Chronic migraine with aura, not intractable, without status migrainosus (principal); R51.0 Headache with orthostatic component, not elsewhere classified; R19.5 Other fecal abnormalities; R63.5 Abnormal weight gain; Z85.9 Personal history of malignant neoplasm, unspecified
CPT/HCPCS: 74177; Q9967

== ENCOUNTER → 2025-02-01 13:18 | Outpatient (BNV) | payer BC, SELFPAY | PROVIDERS: PCP Physician Assistant; Visit Provider Radiology Diagnostic Radiology | DX: R19.5 Other fecal abnormalities (principal); D25.9 Leiomyoma of uterus, unspecified | CPT/HCPCS: 74177 ==